=== PATIENT | male | born 1940 | race Caucasian/White ===

== ENCOUNTER 2018-09-13 15:38 | Inpatient (IN) | payer MEDICARE, OTHER ==
[~2018-09-13] VITALS: Ht 180.3 cm; Wt 125.6 kg
[~2018-09-13 15:38] MED LIST: HUMULIN 70100 UNIT/1 SQ; HUMULIN N100 UNITS/ SC; HUMULIN R100 UNIT/2 SC; LISINOPRIL30 MG PO; PRAVASTATIN SOD80 MG PO; SPIRONOLACTONE50 MG PO; WARFARIN SODIUM10 MG PO
--- OUTSIDE RECORDS SUMMARY | 2018-09-13 16:30 | XMS REPORT ---
Author [facility] Address Unknown Phone Unavailable Care Team Providers Care Drug And Alcohol Counsellor Name Role Phone BERNICE WYNNE Unavailable Unavailable Problems This patient has no known problems. Allergies, Adverse Reactions, Alerts This patient has no known allergies or adverse reactions. Medications This patient has no known medications. Results Test Description Test Time Test Comments Text Results Atomic Results Result Comments PELVIS AP 1-2 VIEWS [place] [id number] Patient Name: RENNY MARTINEZ MR #: [id number] : 1940 Age/Sex: 76/M Req #: [id number] [facility] Physician: Ordered by: BERNICE WYNNE MD Report #: [id number] Location: OR Room/Bed: Procedure: [id number] DX/PELVIS AP 1-2 VIEWS Exam Date: 03/23/17 Exam Time: 1110 REPORT STATUS: Signed PROCEDURE: X-RAY PELVIS, AP VIEW COMPARISON: None. INDICATIONS: STATUS POST LEFT HIP SURGERY FINDINGS: See conclusion CONCLUSION: Postsurgical changes related to total left hip replacement with intact acetabular cup and femoral stem components. No periprosthetic displaced fracture. Skin bhupinder and subcutaneous gas compatible with recent surgery. Dictated by: Bernice Blackmon M.D. on 03/23/2017 at 12:09 Electronically approved by: Bernice Blackmon M.D. on 03/23/2017 at 12:09 Dictated By: BERNICE BLACKMON MD 08 Transcribed By: MARYLOU on 03/23/171208 COPY TO: BERNICE WYNNE MD CHEST 2 VIEWS [place] [id number] Patient Name: RENNY MARTINEZ MR #: [id number] : 1940 Age/Sex: 76/M Req #: [id number] Adm Physician: Ordered by: BERNICE WYNNE MD Report #: [id number] Location: OR Room/Bed: Procedure: [id number] DX/CHEST 2 VIEWS Exam Date: 03/22/17 Exam Time: 1557 REPORT STATUS: Signed PROCEDURE: X-RAY CHEST, TWO VIEWS COMPARISON: 09/30/2011. INDICATIONS: PRE- OP FOR OA LT HIP FINDINGS: The lungs are well-inflated. No focal airspace consolidation, pleural effusion, or pneumothorax. Tortuosity of the thoracic aorta with otherwise normal heart size. No overt pulmonary edema. No acute osseous abnormality. Multilevel degenerative disc changes of the thoracic spine. Azygos fissure is again noted. CONCLUSION: No acute cardiopulmonary abnormality. Dictated by: Bernice Blackmon M.D. on 03/23/2017 at 7:15 Electronically approved by: Bernice Blackmon M.D. on 03/23/2017 at 7:15 Dictated By: BERNICE BLACKMON MD 4 Transcribed By: MARYLOU on 03/23/17714 COPY TO: BERNICE WYNNE MD
--- NOTE | 2018-09-13 16:40 | NUR ---
Direct admit from home. Received patient via wheelchair, accompanied by friend. AAOX4 to time, person, place, situation. Respirations even and unlabored. Oriented patient and friend to room. Instructed to use call light for assistance. Voiced understanding. Side rails upx2, call light within reach.
[2018-09-13 16:48] VITALS: BP 104/51
[2018-09-13] MEDS ORDERED: AZITHROMYCIN250 MG PO (16:58)
[2018-09-13 17:00] VITALS: BP 104/51
[2018-09-13] MEDS ORDERED: ACETAMINOPHEN/CODEINE 300MG - 30MG TAB PO PRN (17:00)
[2018-09-13] MEDS ORDERED: DEXTROSE 50% SYRINGE 50 ML IV PRN (17:00)
[2018-09-13 18:00] VITALS: BP 104/51
[2018-09-13] MEDS ORDERED: POTASSIUM CHLORIDE 20 MEQ TAB CR PO SCH ×2 (18:00→21:00)
[2018-09-13] MEDS ORDERED: FUROSEMIDE INJ 10 MG/ML 4 ML VIAL IV SCH (18:00)
[2018-09-13] MEDS ORDERED: SPIRONOLACTONE 25 MG TAB PO SCH (18:00)
--- NOTE | 2018-09-13 18:10 | Diagnostic Imaging Report ---
EXAM: CHEST 2 VIEWS, PA and lateral DATE: 09/13/2018 Time stamp on exam: 5:13 PM INDICATION: Shortness of breath COMPARISON: 03/22/2017 FINDINGS: LINES/TUBES: None LUNGS: Mild-moderate pulmonary vascular congestion. Azygos lobe noted. PLEURA: Small left pleural effusion. HEART AND MEDIASTINUM: The heart is enlarged. BONES AND SOFT TISSUES: Degenerative changes of the spine. IMPRESSION: Cardiomegaly, pulmonary vascular congestion and a small left pleural effusion consistent with CHF. Signed by: Dr. Trip Tomlinson DO on 09/13/2018 6:07 PM
[2018-09-13 18:52] LABS: BASOPHILS # (AUTO) 0.1 (0.0-0.1); BASOPHILS % 1.4 % (0.0-1.0); EOSINOPHILS # (AUTO) 0.1 (0.0-0.4); HEMATOCRIT 26.4 % (38.2-49.6); LYMPHOCYTES # (AUTO) 1.4 (1.0-3.2); LYMPHOCYTES % 32.6 % (18.0-39.1); MEAN CORPUSCULAR HEMOGLOBIN 29.6 pg (28-32); MEAN CORPUSCULAR HGB CONC 30.3 g/dL (31-35); MEAN CORPUSCULAR VOLUME 97.8 fL (81-99); MONOCYTES # (AUTO) 0.8 (0.2-0.8); MONOCYTES % 17.1 % (4.4-11.3); NEUTROPHILS % 45.7 % (38.7-80.0); RED CELL DISTRIBUTION WIDTH 14.8 % (11.7-14.4)
[2018-09-13 18:54] LABS: PLATELET COUNT 93 x10e3/uL (140-360)
--- NOTE | 2018-09-13 19:00 | NUR ---
Report given to oncoming nurse of patient's status. Resting in bed. No s/s of acute distress noted. Side rails upx2, call light within reach. Addendum: 09/13/18 at 3 by LUZ SCANLON RN Awaiting PT/INR results. Coumadin to be given by oncoming nurse
[2018-09-13 19:03] LABS: INR 1.66; PROTHROMBIN TIME 20.2 seconds (11.9-14.5)
[2018-09-13 19:10] LABS: ANION GAP 16.1 mmol/L (8-16); BLOOD UREA NITROGEN 21 mg/dL (7-26); BUN/CREATININE RATIO 19 (6-25); CALCIUM 8.5 mg/dL (8.4-10.2); CARBON DIOXIDE 29 mmol/L (22-29); CHLORIDE 99 mmol/L (98-107); CREATININE, SERUM 1.08 mg/dL (0.72-1.25); EST GLOMERULAR FILTRATION RATE > 60 ML/MIN (60-); GLUCOSE 71 mg/dL (74-118); POTASSIUM 3.1 mmol/L (3.5-5.1); SODIUM 141 mmol/L (136-145)
[2018-09-13 20:31] VITALS: BP 119/44
[2018-09-13] MEDS: INSULIN REGULAR, HUMAN 100 UNIT/1 ML 3ML VIAL SQ SCH (21:00)
[2018-09-13 21:15] VITALS: BP 119/44
[2018-09-13] MEDS: SPIRONOLACTONE 25 MG TAB PO SCH (21:15)
[2018-09-13] MEDS: NPH, HUMAN INSULIN ISOPHANE 100 UNIT/1 ML 3ML VIAL SQ SCH (21:15)
[2018-09-13] MEDS: WARFARIN SOD 3 MG TAB PO SCH (21:15)
[2018-09-13] MEDS: SIMVASTATIN 40 MG TAB PO SCH (21:15)
[2018-09-13] MEDS: FUROSEMIDE INJ 10 MG/ML 4 ML VIAL IV SCH (22:15)
[2018-09-14] VITALS (8 sets, daily range): BP systolic 93–109; BP diastolic 39–51
--- NOTE | 2018-09-14 04:00 | NUR ---
PATIENT RESTING COMFORTABLY UPON MAKING ROUNDS, NO DISTRESS NOTED. BED RAILS ARE UP, BED IN LOW POSITION, CALL LIGHT WITHIN EASY REACH, WILL CONTINUE TO MONITOR.
[2018-09-14] MEDS: FUROSEMIDE INJ 10 MG/ML 4 ML VIAL IV SCH (05:22)
[2018-09-14 05:36] LABS: BASOPHILS # (AUTO) 0.1 (0.0-0.1); BASOPHILS % 1.7 % (0.0-1.0); EOSINOPHILS # (AUTO) 0.2 (0.0-0.4); EOSINOPHILS % 4.8 % (0.0-6.0); HEMATOCRIT 24.7 % (38.2-49.6); HEMOGLOBIN 7.5 g/dL (14.0-18.0); LYMPHOCYTES # (AUTO) 1.4 (1.0-3.2); LYMPHOCYTES % 39.5 % (18.0-39.1); MEAN CORPUSCULAR HEMOGLOBIN 29.2 pg (28-32); MEAN CORPUSCULAR HGB CONC 30.4 g/dL (31-35); MEAN CORPUSCULAR VOLUME 96.1 fL (81-99); MONOCYTES # (AUTO) 0.5 (0.2-0.8); MONOCYTES % 13.2 % (4.4-11.3); NEUTROPHILS # (AUTO) 1.5 (2.1-6.9); NEUTROPHILS % 40.5 % (38.7-80.0); PLATELET COUNT 88 x10e3/uL (140-360); RED BLOOD COUNT 2.57 x10e6/uL (4.3-5.7); RED CELL DISTRIBUTION WIDTH 14.6 % (11.7-14.4)
[2018-09-14 05:47] LABS: INR 1.81; PROTHROMBIN TIME 21.6 seconds (11.9-14.5)
[2018-09-14 05:52] LABS: ANION GAP 11.5 mmol/L (8-16); CALCIUM 8.3 mg/dL (8.4-10.2); CREATININE, SERUM 1.29 mg/dL (0.72-1.25); POTASSIUM 3.5 mmol/L (3.5-5.1)
--- NOTE | 2018-09-14 07:00 | NUR ---
RCD PT AT BED PT IS ALERT AND ORIENTED PT RESTING ON BED IV PATENT BED LOW AND LOCKED CALL LIGHT IN REACH
[2018-09-14] MEDS: INSULIN REGULAR, HUMAN 100 UNIT/1 ML 3ML VIAL SQ SCH ×4 (07:30→21:00)
[2018-09-14] MEDS ORDERED: FUROSEMIDE INJ 10 MG/ML 2 ML VIAL IV SCH (08:45)
[2018-09-14] MEDS ORDERED: METOPROLOL TARTRATE INJ 1 MG/ML VIAL IV PRN (08:45)
[2018-09-14] MEDS ORDERED: SODIUM CHLORIDE 0.9% 250ML 250 ML IV ONE (08:45)
[2018-09-14] MEDS ORDERED: ONDANSETRON HCL INJ 2MG/ML 2ML 2 MG/ML VIAL IV PRN (08:45)
[2018-09-14] MEDS ORDERED: ACETAMINOPHEN 325 MG TAB PO PRN (08:45)
[2018-09-14] MEDS: OYST-CAL-D 500MG TABLET PO SCH ×2 (09:00→16:58)
[2018-09-14] MEDS: SPIRONOLACTONE 25 MG TAB PO SCH (09:00)
[2018-09-14] MEDS ORDERED: PANTOPRAZOLE SO40 MG PO (09:17)
[2018-09-14] MEDS ORDERED: FERROUS SULFAT325 MG PO (09:17)
[2018-09-14] MEDS ORDERED: FUROSEMIDE40 MG PO (09:17)
--- NOTE | 2018-09-14 10:40 | NUR ---
BLOOD TRANSFUSION STARTED AFTER VERIFIED WITH ANOTHER RN AND VITALS SPEND 15 MTS WITH PT ,PT RESTING ON BED FAMILY AT BED SIDE
--- NOTE | 2018-09-14 12:09 | NUR ---
ECHO REPORT FROM DR TBOIN OFFICE ITS ON CHART
--- NOTE | 2018-09-14 13:23 | NUR ---
SCDS ON BOTH LEGS
--- NOTE | 2018-09-14 13:50 | NUR ---
BLOOD TRANSFUSION COMPLETED VITALS CHECKED IV LASIX GIVE PT RESTING ON BED BED LOW AND LOCKED CALL LIGHT IN REACH
--- NOTE | 2018-09-14 15:59 | NUR ---
Nutrition Screen Note RD Recommendation for Physician: -Continue cardiac/ ADA diet as ordered -Pt refused diet education; handouts were left on bedside. Plan of Care: RD following, monitoring for tolerance and adequacy, diet education Nutrition reason for involvement: Diagnosis Primary Diagnose(s): decompensated heart failure PMH: DM, HTN, HLD Ht: 71in Wt: 277lb BMI: 38.6kg/m2 IBW: 172lb RD Assessment: (09/14) Chart reviewed. Labs and meds reviewed. 77yo M, who was admitted for heart failure. Currently on lasix. Visited pt in the room. Pt reported good appetite without any GI distress. No complains of chewing or swallowing difficulty. Pt reported recent weight gain due to fluids retention. Pt reported hx of CHF for many years and received diet education in the past. Pt was not interested in any more diet education. Handouts were left on bedside. Will continue to monitor and follow. Current Diet: cardiac/ ADA Malnutrition Evaluation (09/14) The patient does not meet criteria for a specified degree of malnutrition at this time. Will re-evaluate at follow-up as appropriate. Diet Education Needs Assessment: Diet education indicated, pt was not interested. Nutrition Care Level: low Signed: Dianna Berrios, MS, RD, LD
[2018-09-14] MEDS: WARFARIN SOD 3 MG TAB PO SCH (16:58)
--- NOTE | 2018-09-14 18:00 | Consultation ---
DATE OF CONSULTATION: Cardiology Consultation CHIEF COMPLAINT: Shortness of breath and fatigue. HISTORY OF PRESENT ILLNESS: The patient came to the office yesterday with extreme dyspnea and fatigue and edema bilaterally. The decision was made to admit the patient. On admission, the patient was noted to have a hemoglobin of 8, which subsequently dropped to 7.5. The patient does not report any bleeding and there was no melena. PAST MEDICAL HISTORY: Significant for: 1. Chronic atrial fibrillation. 2. Hypertension. 3. Previous hip replacement. 4. Previous appendectomy. MEDICATIONS: At home include: 1. Spironolactone. 2. Pravastatin. 3. Coumadin. 4. Humulin. 5. Lisinopril. 6. Furosemide. 7. Iron tablets. 8. Azithromycin. SOCIAL HISTORY: The patient does not drink and does not smoke. FAMILY HISTORY: There is a known family history of coronary artery disease. PHYSICAL EXAMINATION: GENERAL: The patient is a well-developed, well-nourished male, in no distress. VITAL SIGNS: Include a temperature of 98.8, blood pressure was 108/50, pulse was 78. HEAD, EARS, EYES, NOSE, AND THROAT: The patient's cranium was normocephalic and atraumatic. Extraocular muscles were intact. Sclerae were anicteric. Pupils were equal, round, reactive to light. There is no pallor or cyanosis of the oral mucosa. NECK: Supple. No jugular venous distention. No carotid bruits. CHEST: Demonstrated rhonchi bilaterally. CARDIAC: Demonstrated an irregularly irregular rhythm with a 2/6 systolic murmur. ABDOMEN: Demonstrated good bowel sounds. No tenderness. No masses. EXTREMITIES: There is no clubbing, no cyanosis. There was 3 to 4+ edema bilaterally. NEUROLOGIC: The patient was alert and oriented x3. Cranial nerves II through XII are intact. Motor strength was +5/+5 in all limbs. IMAGING DATA: The patient's EKG demonstrated atrial fibrillation with some nonspecific ST-T wave changes. IMPRESSION: The patient is a 77-year-old with chronic atrial fibrillation, admitted with severe fatigue and dyspnea. RECOMMENDATIONS: As follows: 1. The patient will need to be transfused for his low hemoglobin. 2. I feel that the patient's fatigue and dyspnea are most likely related to the anemia. 3. The patient will require a gastrointestinal consult for colonoscopy and endoscopy to evaluate the source of blood loss. 4. An echocardiogram was done in the office, demonstrating normal left ventricular size and function with an ejection fraction of 60%. MD SID Lyman/MODL /[id number]
--- NOTE | 2018-09-14 18:40 | NUR ---
PT RESTING ON BED BED SIDE REPORT GIVEN TO ONCOMING NURSE
--- NOTE | 2018-09-14 19:40 | NUR ---
Spoke with Dr. Amanda grant for Dr. Herzog. Requesting order for hematology consult and to call Attending for preference. Spoke with ASSEMBLER BILLIARD TABLE Dilcia and shabnam for Dr. Sainz.
[2018-09-14 20:11] LABS: FERRITIN 27.35 ng/mL (21.81-274.66)
--- NOTE | 2018-09-14 20:14 | NUR ---
Consult called for Dr. Sainz.
[2018-09-14] MEDS: NPH, HUMAN INSULIN ISOPHANE 100 UNIT/1 ML 3ML VIAL SQ SCH (21:00)
[2018-09-14] MEDS: SIMVASTATIN 40 MG TAB PO SCH (21:09)
[2018-09-15] VITALS (8 sets, daily range): BP systolic 106–126; BP diastolic 56–60
--- NOTE | 2018-09-15 01:45 | Consultation ---
DATE OF CONSULTATION: GI Consult Note. REASON FOR CONSULT: Symptomatic microcytic anemia. HISTORY OF PRESENTING ILLNESS: A 77-year-old, very pleasant white male with past medical history of hypertension, congestive heart failure, chronic atrial fibrillation (on warfarin), who got admitted with a progressive shortness of breath and swelling in legs. He is currently being seen by Pulmonary Service. GI is being consulted because his blood work revealed hemoglobin of 7.5, MCV 96.1. He has received 1 unit of packed red blood cell transfusion today. On further questioning, the patient stated that he never noted dark-colored stool. No episode of any hematemesis, melena, or any hematochezia. No chronic use of any NSAIDs. No abdominal pain. No history of peptic ulcer disease. He recently has had his stool occult blood tested positive on an outpatient basis as ordered by his primary care provider. He has had several colonoscopies done by Dr. Jeffrey in the remote past. The last colonoscopy was probably done more than five years ago. The patient is not sure if he has had any polyp removed. The patient is not sure if he ever had any upper endoscopy. REVIEW OF SYSTEMS: Twelve point system reviewed. Symptomatology is limited as per HPI. PAST MEDICAL HISTORY: Chronic atrial fibrillation, hypertension, and congestive heart failure. PAST SURGICAL HISTORY: Hip replacement and appendectomy. FAMILY HISTORY: Noncontributory. Negative for any GI or Global Marketing Manager malignancies. SOCIAL HISTORY: No smoking, alcohol, or any illicit drug use. ALLERGIES: NO KNOWN DRUG ALLERGIES. HOME MEDICATIONS: Ferrous sulfate, furosemide, insulin, lisinopril, pantoprazole, pravastatin, spironolactone, warfarin, and also a course of Z-Kali. PHYSICAL EXAMINATION: VITAL SIGNS: Temperature 97, pulse 65, respirations 20, blood pressure 109/50, and oxygen saturation 95% on room air. GENERAL: Not in any acute distress. HEENT: Oral mucosa is moist. Anicteric sclerae. CVS: S1, S2. Irregularly regular. LUNGS: Bilaterally grossly clear with decreased breath sounds at bases. ABDOMEN: Soft, protuberant belly, nondistended, and nontender. No palpable mass or hernia. Positive bowel sounds. EXTREMITIES: Warm. 1+ bilateral pitting leg edema. LABORATORY DATA: WBCs 3.57, hemoglobin 7.5, hematocrit 24.7, MCV 96, and platelet count 88. Sodium 139, potassium 3.5, chloride 101, bicarb 30, BUN 22, creatinine 1.29, PT 21.6, and INR 1.81. IMPRESSION: The patient has rather pancytopenia, not only anemia. PLAN: Check iron profile, repeat his stool guaiac, consult Hematology. Further recommendation based upon iron profile. I have given the patient my business card. If upper endoscopy or colonoscopy is indicated, this can be done electively as an outpatient. Nathan Patel MD SA/BRYANT /[id number]
[2018-09-15 05:31] LABS: BASOPHILS # (AUTO) 0.1 (0.0-0.1); BASOPHILS % 1.5 % (0.0-1.0); EOSINOPHILS # (AUTO) 0.2 (0.0-0.4); HEMATOCRIT 27.6 % (38.2-49.6); HEMOGLOBIN 8.2 g/dL (14.0-18.0); LYMPHOCYTES # (AUTO) 1.2 (1.0-3.2); LYMPHOCYTES % 34.3 % (18.0-39.1); MEAN CORPUSCULAR HEMOGLOBIN 28.8 pg (28-32); MEAN CORPUSCULAR HGB CONC 29.7 g/dL (31-35); MEAN CORPUSCULAR VOLUME 96.8 fL (81-99); MONOCYTES # (AUTO) 0.5 (0.2-0.8); MONOCYTES % 15.2 % (4.4-11.3); NEUTROPHILS # (AUTO) 1.4 (2.1-6.9); NEUTROPHILS % 42.7 % (38.7-80.0); PLATELET COUNT 91 x10e3/uL (140-360); RED BLOOD COUNT 2.85 x10e6/uL (4.3-5.7); RED CELL DISTRIBUTION WIDTH 15.1 % (11.7-14.4)
[2018-09-15 05:50] LABS: ANION GAP 11.6 mmol/L (8-16); CALCIUM 8.8 mg/dL (8.4-10.2); CREATININE, SERUM 1.17 mg/dL (0.72-1.25); MAGNESIUM 1.6 MG/DL (1.3-2.1); POTASSIUM 3.6 mmol/L (3.5-5.1)
[2018-09-15 06:03] LABS: B-TYPE NATRIURETIC PEPTIDE2 431.3 pg/mL (0-100)
[2018-09-15 06:12] LABS: FREE T4 (FREE THYROXINE) 1.07 ng/dL (0.9-1.8); THYROID STIMULATING HORMONE 1.691 uIU/mL (0.350-4.940)
[2018-09-15 06:43] LABS: FERRITIN 24.33 ng/mL (21.81-274.66)
[2018-09-15 06:54] LABS: FOLATE 10.4 ng/mL (7.0-15.4)
--- NOTE | 2018-09-15 07:00 | NUR ---
RCD PT AT BED PT IS ALERT AND ORIENTED PT RESTING ON BED IV PATENT BED LOW AND LOCKED CALL LIGHT IN REACH
[2018-09-15] MEDS: INSULIN REGULAR, HUMAN 100 UNIT/1 ML 3ML VIAL SQ SCH (07:30)
[2018-09-15] MEDS ORDERED: FUROSEMIDE INJ 10 MG/ML 4 ML VIAL IV NR (08:45)
[2018-09-15 08:59] LABS: INR 2.02; PROTHROMBIN TIME 23.5 seconds (11.9-14.5)
[2018-09-15] MEDS: OYST-CAL-D 500MG TABLET PO SCH ×2 (09:00→16:49)
[2018-09-15] MEDS: DOCUSATE SODIUM 100 MG CAP PO SCH ×2 (09:00→16:48)
[2018-09-15] MEDS: ASCORBIC ACID 500 MG TAB PO SCH ×2 (09:00→16:49)
[2018-09-15] MEDS: SPIRONOLACTONE 25 MG TAB PO SCH (09:00)
[2018-09-15] MEDS ORDERED: FUROSEMIDE INJ 10 MG/ML 4 ML VIAL IV SCH (09:00)
[2018-09-15] MEDS: INSULIN LISPRO 100 UNIT/1 ML 3ML VIAL SQ SCH ×5 (11:30→21:00)
--- NOTE | 2018-09-15 11:40 | NUR ---
[employer] NOTIFIED THAT PT HAVING VTACH NOTIFIED DR LATRICE QUEEN NO NEW ORDERS
[2018-09-15 11:43] LABS: BILIRUBIN,URINE NEGATIVE (NEGATIVE); CLARITY,URINE SL CLOUDY (CLEAR); COLOR,URINE YELLOW (YELLOW); KETONES,URINE NEGATIVE (NEGATIVE); LEUKOCYTE ESTERASE ,URINE NEGATIVE (NEGATIVE); NITRITE,URINE NEGATIVE (NEGATIVE); PROTEIN,URINE DIPSTICK TRACE (NEGATIVE); URINE UROBILINOGEN 4 mg/dL (0.2 - 1)
[2018-09-15 12:44] LABS: EPITHELIAL CELLS,URINE FEW /LPF
[2018-09-15] MEDS ORDERED: ONDANSETRON HCL 4 MG ORAL DISINTEGRATING TAB PO PRN (16:15)
[2018-09-15] MEDS: WARFARIN SOD 3 MG TAB PO SCH (16:48)
[2018-09-15] MEDS: FERROUS SULFATE 325 MG TAB PO SCH (16:49)
--- NOTE | 2018-09-15 19:01 | NUR ---
PT RESTING ON BED BED SIDE REPORT GIVEN TO ONCOMING NURSE
[2018-09-15] MEDS: SIMVASTATIN 40 MG TAB PO SCH (20:06)
[2018-09-16] VITALS (8 sets, daily range): BP systolic 105–146; BP diastolic 50–67
--- NOTE | 2018-09-16 01:26 | Progress Note ---
DATE: 09/15/2018 SUBJECTIVE: The patient reporting no abdominal pain. His stool remain soft brown. REVIEW OF SYSTEMS: GENERAL: No fever or chills. RESPIRATORY: No cough or expectoration. CVS: No chest pain or palpitation. MEDICATIONS: Reviewed as per MAR. PHYSICAL EXAMINATION: VITAL SIGNS: Stable. GENERAL: Not in any acute distress. HEENT: Oral mucosa is moist. ABDOMEN: Soft, nondistended, nontender. No palpable mass or hernia. Positive bowel sounds. LABS: Reviewed. PLAN: Appreciate Hematology consult for pancytopenia. His stool guaiac result is pending. If indicated, then the patient can get upper endoscopy and colonoscopy electively as an outpatient. The patient has my business card. He will follow up with me in 1 to 2 weeks after discharge. Nathan Patel MD SA/BRYANT /[id number]
[2018-09-16 05:54] LABS: BASOPHILS # (AUTO) 0.1 (0.0-0.1); BASOPHILS % 1.3 % (0.0-1.0); EOSINOPHILS # (AUTO) 0.2 (0.0-0.4); EOSINOPHILS % 4.3 % (0.0-6.0); HEMATOCRIT 26.2 % (38.2-49.6); HEMOGLOBIN 8.1 g/dL (14.0-18.0); LYMPHOCYTES # (AUTO) 1.2 (1.0-3.2); MEAN CORPUSCULAR HEMOGLOBIN 29.3 pg (28-32); MEAN CORPUSCULAR HGB CONC 30.9 g/dL (31-35); MEAN CORPUSCULAR VOLUME 94.9 fL (81-99); MONOCYTES # (AUTO) 0.6 (0.2-0.8); MONOCYTES % 16.1 % (4.4-11.3); NEUTROPHILS # (AUTO) 1.7 (2.1-6.9); PLATELET COUNT 101 x10e3/uL (140-360); RED BLOOD COUNT 2.76 x10e6/uL (4.3-5.7); RED CELL DISTRIBUTION WIDTH 14.9 % (11.7-14.4)
[2018-09-16 06:04] LABS: INR 2.36; PROTHROMBIN TIME 26.5 seconds (11.9-14.5)
[2018-09-16 06:09] LABS: ANION GAP 10.7 mmol/L (8-16); BLOOD UREA NITROGEN 22 mg/dL (7-26); BUN/CREATININE RATIO 22 (6-25); CALCIUM 8.9 mg/dL (8.4-10.2); CARBON DIOXIDE 31 mmol/L (22-29); CHLORIDE 103 mmol/L (98-107); CREATININE, SERUM 0.99 mg/dL (0.72-1.25); EST GLOMERULAR FILTRATION RATE > 60 ML/MIN (60-); GLUCOSE 141 mg/dL (74-118); MAGNESIUM 1.4 MG/DL (1.3-2.1); POTASSIUM 3.7 mmol/L (3.5-5.1); SODIUM 141 mmol/L (136-145)
[2018-09-16] MEDS: PANTOPRAZOLE SOD 40 MG TABEC PO SCH ×3 (06:30→07:25)
[2018-09-16] MEDS ORDERED: POTASSIUM CHLORIDE 20 MEQ TAB CR PO NR (07:30)
[2018-09-16] MEDS ORDERED: FUROSEMIDE INJ 10 MG/ML 4 ML VIAL IV NR (07:30)
--- NOTE | 2018-09-16 07:48 | Consultation ---
DATE OF CONSULTATION: 09/15/2018 REASON FOR CONSULTATION: Evaluation and management of patient with pancytopenia. HISTORY OF PRESENTING ILLNESS: Mr. Gardiner is a very pleasant 77-year-old gentleman with known history of atrial fibrillation, hypertension, and congestive heart failure, who was admitted due to progressive shortness of breath and worsening swelling in lower extremities. His initial workup revealed severe anemia with a hemoglobin of 7.5 and thrombocytopenia. Of note, the patient has been on anticoagulation with Coumadin due to atrial fibrillation with therapeutic INR. He was seen and evaluated by Gastroenterology Service and given 1 unit of PRBC transfusion. Hematology-Oncology has been consulted to assist with the management. Presently, the patient is lying comfortably, not in acute distress, breathing normally. He states that he has had extensive GI workup in the past. He denied any bleeding per rectum or history of any malignancy. PAST MEDICAL HISTORY: 1. Congestive heart failure. 2. Hypertension. 3. Chronic atrial fibrillation. 4. Chronic anticoagulation. PAST SURGICAL HISTORY: 1. Hip replacement. 2. Appendicectomy. 3. Multiple EGD and colonoscopies. FAMILY HISTORY: Negative for malignancies. SOCIAL HISTORY: He denies history of smoking, alcohol use, or illicit drug use. ALLERGIES: NO KNOWN DRUG ALLERGIES. CURRENT MEDICATIONS: Reviewed as per electronic medical record. REVIEW OF SYSTEMS: Fourteen-point review of systems negative except as mentioned in history of present illness. PHYSICAL EXAMINATION: VITAL SIGNS: Reviewed as per electronic medical record. HEENT: PERRLA. Extraocular movements are intact. Head is atraumatic and normocephalic. NECK: Supple. CVS: S1 and S2 audible. RESPIRATORY: Decreased bilateral air entry. ABDOMEN: Soft. Positive bowel sounds. EXTREMITIES: Positive edema. NEUROLOGIC: The patient is alert and awake. LABORATORY DATA: White blood cell count of 3.3, hemoglobin 8.2, hematocrit 27.6, and platelet 91,000. BUN 22 and creatinine 1.1. INR 2.02. ASSESSMENT AND PLAN: Mr. Gardiner is a very pleasant 77-year-old gentleman with known history of congestive heart failure, hypertension, and chronic atrial fibrillation, presently on anticoagulation with warfarin, admitted to the hospital due to progressive shortness of breath and worsening swelling of lower extremities. The patient has been seen and evaluated by GI as well as Pulmonary Service. Now, Hematology-Oncology has been consulted to assist with the management due to pancytopenia. 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 At this point, recommendation would be to get baseline workup and depending on the result we will provide further recommendation. I have also discussed briefly the need for bone marrow biopsy. The workup remained inconclusive. Meanwhile, continue supportive care. Thank you for the consult. I will continue to be available. Please call with questions. MD JAIR Guzmán/MODL /[id number]
[2018-09-16] MEDS: DOCUSATE SODIUM 100 MG CAP PO SCH ×2 (10:03→17:10)
[2018-09-16] MEDS: SPIRONOLACTONE 25 MG TAB PO SCH (10:03)
[2018-09-16] MEDS: FERROUS SULFATE 325 MG TAB PO SCH ×2 (10:03→17:11)
[2018-09-16] MEDS: ASCORBIC ACID 500 MG TAB PO SCH ×2 (10:04→17:11)
[2018-09-16] MEDS: OYST-CAL-D 500MG TABLET PO SCH ×2 (10:04→17:11)
[2018-09-16] MEDS: INSULIN LISPRO 100 UNIT/1 ML 3ML VIAL SQ SCH ×7 (10:12→21:30)
[2018-09-16 12:41] LABS: ANISOCYTOSIS SLIGHT; HYPOCHROMASIA MODERATE; PLATELET ESTIMATE SLIGHTLY DECREASED; PLATELET MORPHOLOGY COMMENT FEW LARGE; RBC MORPHOLOGY COMMENT NORMAL
--- NOTE | 2018-09-16 12:51 | NUR ---
CM SPOKE TO PATIENT AT BEDSIDE REGARDING IMM LETTER. IMM LETTER GIVEN WITH EXPLANATION BASED ON ANTICIPATED DISCHARGE DATE. ORIGINAL SIGNED AND PLACED IN CHART; COPY OF ORIGINAL DOCUMENT GIVEN TO PATIENT AT BEDSIDE AND PLACED IN CARE TRANSITION FOLDER. CM CONTACT INFORMATION GIVEN TO PATIENT FOR ANY NEEDS OR CONCERNS. PATIENT WITH NO FURTHER QUESTIONS.
[2018-09-16] MEDS: WARFARIN SOD 3 MG TAB PO SCH (17:11)
--- NOTE | 2018-09-16 18:11 | Diagnostic Imaging Report ---
EXAM: Complete Abdominal Ultrasound INDICATION: Evaluate for cirrhosis. ^Evaluate for cirrhosis COMPARISON: None. TECHNIQUE: Transverse and longitudinal images of the upper abdomen were obtained. FINDINGS: Liver: Size: 14.4 cm in the right midclavicular line, normal Appearance: Normal echogenicity, nodular contour Mass: No focal masses Spleen: Size: 12.8 cm in length, normal Echogenicity: Normal Mass: No focal masses Gallbladder: Stones/Sludge: None Wall: 0.3 cm Appearance: No wall thickening, pericholecystic fluid or hydrops. Sonographic Anglin's Sign: Negative Bile Ducts: Intrahepatic Ducts: No dilatation Extrahepatic Ducts: Common bile duct measures 0.5 cm, no dilatation Pancreas: Not well seen Kidneys: Length: Right 11.0 cm Left 10.5 cm Echogenicity: Normal Collecting System: No hydronephrosis Stone: None Cyst/Mass: None Vessels: Aorta: Not well seen Inferior Vena Cava: Not well seen Main Portal Vein: 1.2 cm, normal size with hepatopetal flow. Free Fluid: No ascites or pleural effusion IMPRESSION: Nodular contour in the liver could be due to cirrhosis. Pancreas, abdominal aorta and inferior vena cava not well seen. Signed by: Dr. Idris Whitman M.D. on 09/16/2018 6:08 PM
[2018-09-16] MEDS: FUROSEMIDE INJ 10 MG/ML 4 ML VIAL IV SCH (21:30)
[2018-09-16] MEDS: SIMVASTATIN 40 MG TAB PO SCH (21:30)
[2018-09-17 00:40] VITALS: BP_SYST 115
--- NOTE | 2018-09-17 01:17 | Progress Note ---
DATE: 09/16/2018 SUBJECTIVE: The patient reports no abdominal pain. Tolerating oral diets very well. Regular bowel movement, soft brown stool. REVIEW OF SYSTEMS: GENERAL: No fever or chills. CVS: No chest pain or palpitation. RESPIRATORY: Shortness of breath on exertion. MEDICATIONS: Reviewed as per MAR. PHYSICAL EXAMINATION: VITAL SIGNS: Temperature 96.6, pulse 61, respirations 19, blood pressure 121/66, and oxygen saturation 93% on room air. GENERAL: Obese body habitus, not in any acute distress. HEENT: Oral mucosa is moist. Anicteric sclerae. ABDOMEN: Soft, protuberant belly, obese abdomen, nondistended, nontender. No palpable mass or hernia. Positive bowel sounds. LABORATORY DATA: WBC 3.73, hemoglobin 8.1, down from 8.2, hematocrit 26.2, MCV 94.9, and platelet count 101. Sodium 141, potassium 3.1, chloride 103, bicarb 31, BUN 22, creatinine 0.99, and glucose is 141. PT 26.5, INR 2.36. Stool occult blood is positive on two occasions. IMPRESSION: 1. Pancytopenia. 2. Anemia with heme-positive stool. PLAN: Given his congestive heart failure with leg edema. I will hold off doing any endoscopy. The patient can electively get evaluation of heme-positive stool with bidirectional endoscopy as an outpatient. His stool often turns out positive for occult blood on patients taking anticoagulants. I do not suspect anemia from GI bleeding. The patient's anemia falls into the spectrum of pancytopenia. Hematology service is following the patient. Recommend to continue warfarin. The patient has my business card. He will follow in my office within 1 to 2 weeks post discharge. Nathan Patel MD SA/BRYANT /[id number]
[2018-09-17 05:13] VITALS: BP 121/58
[2018-09-17 05:53] LABS: BASOPHILS # (AUTO) 0.1 (0.0-0.1); BASOPHILS % 1.4 % (0.0-1.0); EOSINOPHILS # (AUTO) 0.2 (0.0-0.4); EOSINOPHILS % 3.8 % (0.0-6.0); HEMATOCRIT 26.1 % (38.2-49.6); LYMPHOCYTES # (AUTO) 1.5 (1.0-3.2); LYMPHOCYTES % 34.1 % (18.0-39.1); MEAN CORPUSCULAR HEMOGLOBIN 29.5 pg (28-32); MEAN CORPUSCULAR HGB CONC 30.7 g/dL (31-35); MEAN CORPUSCULAR VOLUME 96.3 fL (81-99); MONOCYTES # (AUTO) 0.6 (0.2-0.8); MONOCYTES % 14.4 % (4.4-11.3); NEUTROPHILS % 45.8 % (38.7-80.0); PLATELET COUNT 105 x10e3/uL (140-360); RED BLOOD COUNT 2.71 x10e6/uL (4.3-5.7); RED CELL DISTRIBUTION WIDTH 14.7 % (11.7-14.4)
[2018-09-17 07:20] LABS: ANION GAP 12.3 mmol/L (8-16); BLOOD UREA NITROGEN 23 mg/dL (7-26); BUN/CREATININE RATIO 22 (6-25); CALCIUM 9.6 mg/dL (8.4-10.2); CARBON DIOXIDE 33 mmol/L (22-29); CHLORIDE 100 mmol/L (98-107); CREATININE, SERUM 1.06 mg/dL (0.72-1.25); EST GLOMERULAR FILTRATION RATE > 60 ML/MIN (60-); GLUCOSE 157 mg/dL (74-118); MAGNESIUM 1.2 MG/DL (1.3-2.1); POTASSIUM 4.3 mmol/L (3.5-5.1); SODIUM 141 mmol/L (136-145)
[2018-09-17 08:07] VITALS: BP 120/57
[2018-09-17 08:30] VITALS: BP 120/57
[2018-09-17] MEDS: FERROUS SULFATE 325 MG TAB PO SCH (08:30)
[2018-09-17] MEDS: DOCUSATE SODIUM 100 MG CAP PO SCH (08:30)
[2018-09-17] MEDS: SPIRONOLACTONE 25 MG TAB PO SCH (08:30)
[2018-09-17] MEDS: PANTOPRAZOLE SOD 40 MG TABEC PO SCH (08:30)
[2018-09-17] MEDS: FUROSEMIDE INJ 10 MG/ML 4 ML VIAL IV SCH (08:31)
[2018-09-17] MEDS: ASCORBIC ACID 500 MG TAB PO SCH (08:31)
[2018-09-17] MEDS: OYST-CAL-D 500MG TABLET PO SCH (08:31)
[2018-09-17] MEDS: INSULIN LISPRO 100 UNIT/1 ML 3ML VIAL SQ SCH ×2 (08:37)
[2018-09-17] MEDS ORDERED: POTASSIUM CHLORIDE 20 MEQ TAB CR PO SCH (09:00)
[2018-09-17 09:30] LABS: INR 2.43; PROTHROMBIN TIME 27.1 seconds (11.9-14.5)
[2018-09-17] MEDS ORDERED: PANTOPRAZOLE SO40 MG PO (09:31)
[2018-09-17] MEDS ORDERED: COLACE100 MG PO (09:34)
[2018-09-17] MEDS ORDERED: Calcium Carbonate PO (09:34)
[2018-09-17] MEDS ORDERED: FERROUS SULFAT325 MG PO (09:34)
[2018-09-17] MEDS ORDERED: ASCORBIC ACID500 MG PO (09:34)
[2018-09-17] MEDS ORDERED: FUROSEMIDE INJ 10 MG/ML 4 ML VIAL IV ONE (09:45)
--- NOTE | 2018-09-17 19:06 | Progress Note ---
DATE: 09/17/2018 CHIEF COMPLAINT: The patient with pancytopenia and CHF exacerbation. HISTORY OF PRESENTING ILLNESS: Mr. Gardiner is a 77-year-old gentleman with known history of congestive heart failure, hypertension, and chronic atrial fibrillation, presented to the ER on anticoagulation with warfarin, admitted due to progressive shortness of breath and worsening swelling of lower extremities. He has been treated with IV diuretics with improved symptoms. He was noted to have pancytopenia. Subsequently, Hematology-Oncology has been consulted. OBJECTIVE: VITAL SIGNS: Reviewed and as per electronic medical record. LABORATORY DATA: White blood cell count 4.43, hemoglobin 8.0, hematocrit 26.1, and platelets 105. BUN 22 and creatinine 1.0. ASSESSMENT AND PLAN: Mr. Gardiner is a 77-year-old gentleman with known history of hypertension, atrial fibrillation, and congestive heart failure, admitted due to shortness of breath. He underwent workup which remained inconclusive. Cause of pancytopenia remain uncertain. I have advised him to follow up with me in an outpatient setting. MD JAIR Guzmán/MODL /[id number]
--- NOTE | 2018-09-17 20:11 | Discharge Summary ---
ADMISSION DIAGNOSES: 1. Acute on chronic systolic congestive heart failure. 2. Atrial fibrillation. 3. Hypertension complicated by chronic congestive heart failure. 4. Type 2 diabetes. 5. Hyperlipidemia. 6. Anemia. 7. Thrombocytopenia. 8. Hypocalcemia. DISCHARGE DIAGNOSES: 1. Acute on chronic systolic congestive heart failure. 2. Atrial fibrillation. 3. Hypertension complicated by chronic congestive heart failure. 4. Type 2 diabetes. 5. Hyperlipidemia. 6. Anemia. 7. Thrombocytopenia. 8. Hypocalcemia. 9. Rule out systolic congestive heart failure/pancytopenia. HISTORY: The patient has a history of type 2 diabetes, hypertension, hyperlipidemia, osteoarthritis, and atrial fibrillation. PAST SURGICAL HISTORY: Left total hip replacement, left eye retinal detachment repair, and appendectomy. FAMILY HISTORY: The patient's mom and dad both have cancer. SOCIAL HISTORY: Noncontributory. HOSPITAL COURSE: A 77-year-old male complains of intermittent bilateral lower extremity edema, shortness of breath, and dyspnea on exertion that began to worsen about a month ago. He admits to only taking Lasix when he noticed the swelling and does not follow a fluid restriction at home. Nothing improves or worsens his symptoms. On admission, the patient was started on IV Lasix b.i.d. and an echo was ordered. A BNP on admission was 659, Cardiology was consulted. He was resumed on his Coumadin. Chest x-ray showed cardiomegaly, pulmonary vascular congestion, and small left pleural effusion consistent with CHF. Ultrasound of the abdomen showed no ascites or pleural effusions, nodular contour in the liver could be due to cirrhosis. Stool for blood came back positive, so GI was consulted. The patient received a unit of blood on 09/14/2018, for his anemia. The inpatient echo was discontinued as he had recently had an echo done in the bottle washer's office. The echo showed an EF of 60%, so CHF was ruled out. Even though the stool for blood was positive, GI said that the patient could do workup as an outpatient. Hematology/Oncology was consulted for the pancytopenia, who also said the patient can follow up outpatient for workup. At the time of discharge, the patient is feeling much better. He was instructed to take his Lasix as prescribed, which was Lasix 80 mg p.o. b.i.d. Continue his Aldactone. He was given a prescription for iron, ascorbic acid, calcium carbonate, and Colace as well as renew his prescription for Protonix. The patient agrees to take medications as prescribed and follow the fluid restriction. The patient will follow up with GI, Oncology, Cardiology, and primary care in 1-2 weeks. The patient understands discharge instructions and agrees to plan. Dictated by Jennifer Hazel NP Robin Neville MD LETICIA/MODL /[id number]
== END 2018-09-17 10:45 | disposition home or self-care (01) | DRG 292 ==
LOC: MED/SURG2 16:25
PROVIDERS: ADMIT Internal Medicine; ATTEND Internal Medicine
PROC: 30233N1 Transfusion of Nonautologous Red Blood Cells into Peripheral Vein, Percutaneous Approach (ICD-10-PCS; principal; 2018-09-14)
DX: I11.0 Hypertensive heart disease with heart failure (principal); D61.818 Other pancytopenia; K92.1 Melena; I50.23 Acute on chronic systolic (congestive) heart failure; I48.2 Chronic atrial fibrillation; E78.5 Hyperlipidemia, unspecified; E11.9 Type 2 diabetes mellitus without complications; M19.90 Unspecified osteoarthritis, unspecified site; Z79.01 Long term (current) use of anticoagulants; Z79.4 Long term (current) use of insulin; Z96.642 Presence of left artificial hip joint
CPT/HCPCS: 36415; 71046; 76700; 80048; 81001; 82270; 82607; 82728; 82746; 82948; 83036; 83540; 83735; 83880; 84439; 84443; 84466; 85025; 85610; 86850; 86900; 86920; 96372; J1940; J7050; P9016

== ENCOUNTER 2018-09-21 20:58 | Inpatient (IN) | payer MEDICARE, OTHER ==
[~2018-09-21] VITALS: Ht 210.8 cm; Wt 141.1 kg
[~2018-09-21 20:58] MED LIST changes: +ASCORBIC ACID500 MG PO; +AZITHROMYCIN250 MG PO; +COLACE100 MG PO; +Calcium Carbonate PO; +FERROUS SULFAT325 MG PO; +FUROSEMIDE40 MG PO; +PANTOPRAZOLE SO40 MG PO
[2018-09-21] MEDS ORDERED: SODIUM CHLORIDE 0.9% 1000ML 1,000 ML IV ONE (21:22)
[2018-09-21] MEDS ORDERED: VECURONIUM BROMIDE FOR INJ 20 MG VIAL IV STA (21:35)
[2018-09-21] MEDS ORDERED: MIDAZOLAM HCL 5MG/ML 2ML VIAL IV ONE (21:35)
[2018-09-21] MEDS ORDERED: LIDOCAINE 1% 5ML-MPF INJ ONE (21:35)
[2018-09-21] MEDS ORDERED: MIDAZOLAM HCL 2 MG/2 ML VIAL ONE (21:40)
[2018-09-21] MEDS ORDERED: LIDOCAINE HCL 2% 100 MG/5 ML IV ONE (21:41)
[2018-09-21] MEDS ORDERED: SODIUM CHLORIDE 0.9% 1000ML 1,000 ML ONE (21:46)
[2018-09-21] MEDS ORDERED: MIDAZOLAM HCL 25 MG in SODIUM CHLORIDE 0.9% 45 ML IV PRN (22:00)
[2018-09-21] MEDS ORDERED: ALBUTEROL/IPRATROPIUM 3 ML NEB NEB ONE (22:30)
[2018-09-21 22:38] LABS: BASOPHILS # (AUTO) 0.1 (0.0-0.1); BASOPHILS % 0.8 % (0.0-1.0); EOSINOPHILS # (AUTO) 0.1 (0.0-0.4); EOSINOPHILS % 1.1 % (0.0-6.0); HEMATOCRIT 21.4 % (38.2-49.6); LYMPHOCYTES # (AUTO) 2.3 (1.0-3.2); LYMPHOCYTES % 34.1 % (18.0-39.1); MEAN CORPUSCULAR HEMOGLOBIN 29.4 pg (28-32); MEAN CORPUSCULAR HGB CONC 30.4 g/dL (31-35); MEAN CORPUSCULAR VOLUME 96.8 fL (81-99); MONOCYTES # (AUTO) 0.8 (0.2-0.8); MONOCYTES % 11.7 % (4.4-11.3); NEUTROPHILS # (AUTO) 3.4 (2.1-6.9); PLATELET COUNT 149 x10e3/uL (140-360); RED BLOOD COUNT 2.21 x10e6/uL (4.3-5.7); RED CELL DISTRIBUTION WIDTH 15.7 % (11.7-14.4)
--- NOTE | 2018-09-21 22:45 | Diagnostic Imaging Report ---
EXAMINATION: Head CT without contrast. HISTORY:Altered mental status. COMPARISON:None. TECHNIQUE: Multidetector axial images were obtained from the foramen magnum to the vertex without contrast. The images were reconstructed using brain and bone algorithms. Thin section brain images were reformatted into coronal and sagittal planes. Dose modulation, iterative reconstruction, and/or weight based adjustment of the mA/kV was utilized to reduce the radiation dose to as low as reasonably achievable. Intravenous contrast: None IMAGE QUALITY: Acceptable. FINDINGS: Skull/scalp: No lytic or blastic. lesions. No surgical changes. Parenchyma: Nonspecific few, scattered supratentorial white matter hypodensity are likely related to small vessel ischemic changes. No acute hemorrhage, mass or acute major vascular territorial infarct. Arteries: No density suggestive of thrombosis. Dural sinuses: No abnormal density suggestive of thrombosis. Ventricles: No hydrocephalus or displacement. Extra-axial spaces: No abnormal density. Brain volume: Generalized age-related cerebral volume loss. Craniocervical junction: No mass, Chiari malformation, or basilar invagination. Sella: No mass. Paranasal/mastoid sinuses: Imaged portions unremarkable. IMPRESSION: No acute intracranial abnormality. Generalized age-related cerebral volume loss and supratentorial white matter microvascular ischemic changes. Signed by: Dr. Marisol Berger M.D. on 09/21/2018 10:42 PM
[2018-09-21 22:46] LABS: HEMOGLOBIN 6.5 g/dL (14.0-18.0)
--- NOTE | 2018-09-21 22:48 | NUR ---
AND RN NOTIFIED OF CRITICAL LAB VALUE. HBG 6.5 HCT 21.5.
[2018-09-21 22:50] LABS: INR 4.13
[2018-09-21 22:51] LABS: BILIRUBIN,URINE NEGATIVE (NEGATIVE); CLARITY,URINE CLEAR (CLEAR); COLOR,URINE YELLOW (YELLOW); KETONES,URINE NEGATIVE (NEGATIVE); LEUKOCYTE ESTERASE ,URINE NEGATIVE (NEGATIVE); NITRITE,URINE NEGATIVE (NEGATIVE); PROTEIN,URINE DIPSTICK NEGATIVE (NEGATIVE); URINE UROBILINOGEN 1 mg/dL (0.2 - 1)
[2018-09-21 22:51] LABS: PARTIAL THROMBOPLASTIN TIME 40.4 seconds (23.8-35.5)
--- NOTE | 2018-09-21 22:53 | Diagnostic Imaging Report ---
EXAMINATION: CHEST SINGLE (PORTABLE) COMPARISON: Chest x-ray 09/13/2018 INDICATION: Hypotension, altered level of consciousness ^ERMD ORDER ^[id number] ^[id number] ^Y DISCUSSION: Frontal view of the chest obtained at 2200 hours. HEART AND MEDIASTINUM: Stable cardiomegaly and aortic tortuosity LINES: Endotracheal tube terminates proximally 4 cm above the palak LUNGS: Pulmonary arteries are enlarged. There is an azygos lobe. Retrocardiac airspace opacity has developed. No confluent infiltrates in the right lung. PLEURA: No large effusions. No pneumothorax BONES AND SOFT TISSUES: No focal osseous lesion. The soft tissues are normal. IMPRESSION: Cardiomegaly and pulmonary vascular prominence suggestive of pulmonary artery hypertension. Retrocardiac airspace disease suggestive atelectasis or infiltrate. Small effusion is suspected. Endotracheal tube as described above. Signed by: Dr. Stevie Rogers MD on 09/21/2018 10:50 PM
--- NOTE | 2018-09-21 22:55 | NUR ---
VTACH NOTED ON WORKFORCE DEVELOPMENT VICE PRESIDENT, DR. PURVIS INFORMED. PADS APPLIED. AMIODARONE ORDERS RECEIVED, SEE eMAR.
--- NOTE | 2018-09-21 22:56 | NUR ---
VTACH EPISODE LASTED APPROX 1 MIN.
[2018-09-21 22:57] LABS: PROTHROMBIN TIME 40.8 seconds (11.9-14.5)
[2018-09-21 22:58] LABS: ALANINE AMINOTRANSFERASE 14 IU/L (0-55); ALBUMIN 2.4 g/dL (3.5-5.0); ALBUMIN/GLOBULIN RATIO 0.9 (0.8-2.0); ALKALINE PHOSPHATASE 61 IU/L (40-150); BLOOD UREA NITROGEN 46 mg/dL (7-26); BUN/CREATININE RATIO 41 (6-25); CALCIUM 8.5 mg/dL (8.4-10.2); CARBON DIOXIDE 30 mmol/L (22-29); CHLORIDE 102 mmol/L (98-107); CREATINE KINASE 58 IU/L (30-200); CREATININE, SERUM 1.13 mg/dL (0.72-1.25); EST GLOMERULAR FILTRATION RATE > 60 ML/MIN (60-); GLUCOSE 162 mg/dL (74-118); SODIUM 142 mmol/L (136-145)
[2018-09-21] MEDS ORDERED: AMIODARONE HCL 360MG 200 ML IV SCH ×2 (23:00)
[2018-09-21] MEDS ORDERED: AMIODARONE 900MG 500 ML IV ONE (23:04)
[2018-09-21] MEDS ORDERED: AMIODARONE HCL 900 MG in DEXTROSE 5% 500ML 500 ML IV STA (23:05)
[2018-09-21 23:06] LABS: B-TYPE NATRIURETIC PEPTIDE2 371.9 pg/mL (0-100)
--- NOTE | 2018-09-21 23:11 | NUR ---
MD AND RN NOTIFIED OF CRITICAL LAB VALUES. PT 40.8 AND LACTIC ACID 32.7.
[2018-09-21] MEDS ORDERED: PHYTONADIONE 10 MG/ML AMP SC ONE (23:15)
[2018-09-21] MEDS ORDERED: PANTOPRAZOLE INJ 80 MG in SODIUM CHLORIDE 0.9% 100 ML IV SCH (23:15)
[2018-09-21] MEDS ORDERED: SODIUM CHLORIDE FLUSH 10 ML SYR INJ PRN (23:15)
[2018-09-21] MEDS ORDERED: AMIODARONE HCL 150MG 100 ML IV ONE (23:15)
[2018-09-21] MEDS ORDERED: SODIUM CHLORIDE 0.9% 250ML 250 ML IV ONE (23:15)
[2018-09-21] MEDS ORDERED: AMIODARONE HCL 900 MG in DEXTROSE 5% 500ML 500 ML IV ONE (23:15)
[2018-09-21 23:18] LABS: THYROID STIMULATING HORMONE 1.698 uIU/mL (0.350-4.940)
[2018-09-21 23:23] LABS: BACTERIA,URINE RARE /HPF; EPITHELIAL CELLS,URINE RARE /LPF
[2018-09-22] VITALS (25 sets, daily range): BP systolic 73–128; BP diastolic 29–95
[2018-09-22] MEDS ORDERED: LACTULOSE SYRUP 20 GM/30 ML UDC NG ONE
[2018-09-22] MEDS ORDERED: SODIUM CHLORIDE 0.9% 1000ML 1,000 ML IV ONE ×2 (00:15→06:30)
--- NOTE | 2018-09-22 00:15 | NUR ---
PT NOTED TO HAVE SEVERE HYPOTENSION, DR. PURVIS INFORMED, AT BEDSIDE AT THIS TIME FOR CENTRAL LINE PLACEMENT.
[2018-09-22] MEDS ORDERED: PHYTONADIONE 10 MG/ML AMP SQ ONE (00:30)
--- NOTE | 2018-09-22 00:42 | NUR ---
RADIOLOGY AT BEDSIDE FOR POST-PROCEDURE X-RAY AT THIS TIME.
--- NOTE | 2018-09-22 01:14 | Diagnostic Imaging Report ---
EXAMINATION: CHEST SINGLE (PORTABLE) COMPARISON: 09/21/2018 INDICATION: ^CENTRAL LINE PLACEMENT ^[id number] ^0050 ^Y DISCUSSION: Frontal view of the chest obtained at 0042 hours. HEART AND MEDIASTINUM: Stable cardiomegaly and vascular prominence LINES: Endotracheal tube terminates 3 to 4 cm above the palak. Right subclavian central venous catheter lies midline in the upper mediastinum. LUNGS: Stable retrocardiac airspace opacity. No new findings in the right lung. PLEURA: No pleural effusion or pneumothorax. BONES AND SOFT TISSUES: No focal osseous lesion. The soft tissues are normal. IMPRESSION: Right subclavian central venous catheter terminates at the midline. It may terminate at the proximal left brachiocephalic vein. No pneumothorax. Endotracheal tube as described above. No new cardiopulmonary process. Signed by: Dr. Stevie Rogers MD on 09/22/2018 1:11 AM
[2018-09-22 02:43] LABS: ABG HCO3 35 mmol/L (23-28); ABG PCO2 48 mmHg (41-51); ABG PH 7.47 (7.31-7.41); ABG PO2 374 mmHg (80-105)
[2018-09-22] MEDS ORDERED: VANCOMYCIN 1GM/NS 250 ML 250 ML IV ONE (02:45)
[2018-09-22] MEDS ORDERED: CEFEPIME 1GM/NS 0.9% 50 ML 50 ML IV SCH (02:45)
[2018-09-22] MEDS ORDERED: SODIUM CHLORIDE 0.9% 1000ML 1,000 ML ONE (03:48)
[2018-09-22] MEDS ORDERED: ATROPINE SULFATE 0.1 MG/ML 10ML SYR ONE (03:49)
[2018-09-22] MEDS ORDERED: AMIODARONE HCL 360MG 200 ML IV SCH (05:00)
[2018-09-22] MEDS ORDERED: PANTOPRAZOL 40MG/SOD CHL 0.9% 50 ML IV ONE (06:13)
[2018-09-22] MEDS ORDERED: VANCOMYCIN 1GM/NS 250 ML 250 ML ONE (06:26)
[2018-09-22 06:56] LABS: BASOPHILS # (AUTO) 0.1 (0.0-0.1); BASOPHILS % 0.7 % (0.0-1.0); EOSINOPHILS % 0.4 % (0.0-6.0); HEMATOCRIT 22.6 % (38.2-49.6); HEMOGLOBIN 7.3 g/dL (14.0-18.0); LYMPHOCYTES % 14.4 % (18.0-39.1); MEAN CORPUSCULAR HEMOGLOBIN 29.4 pg (28-32); MEAN CORPUSCULAR HGB CONC 32.3 g/dL (31-35); MEAN CORPUSCULAR VOLUME 91.1 fL (81-99); MONOCYTES # (AUTO) 0.8 (0.2-0.8); MONOCYTES % 11.3 % (4.4-11.3); NEUTROPHILS # (AUTO) 5.1 (2.1-6.9); NEUTROPHILS % 72.8 % (38.7-80.0); PLATELET COUNT 138 x10e3/uL (140-360); RED BLOOD COUNT 2.48 x10e6/uL (4.3-5.7); RED CELL DISTRIBUTION WIDTH 15.9 % (11.7-14.4)
[2018-09-22 07:36] LABS: ANION GAP 14.2 mmol/L (8-16); BLOOD UREA NITROGEN 51 mg/dL (7-26); BUN/CREATININE RATIO 44 (6-25); CARBON DIOXIDE 26 mmol/L (22-29); CHLORIDE 104 mmol/L (98-107); CREATININE, SERUM 1.15 mg/dL (0.72-1.25); EST GLOMERULAR FILTRATION RATE > 60 ML/MIN (60-); GLUCOSE 240 mg/dL (74-118); POTASSIUM 4.2 mmol/L (3.5-5.1); SODIUM 140 mmol/L (136-145)
[2018-09-22] MEDS ORDERED: VASOPRESSIN 100 UNIT in DEXTROSE 5% 100ML 100 ML IV PRN (08:00)
[2018-09-22 08:06] LABS: INR 3.04; PROTHROMBIN TIME 32.2 seconds (11.9-14.5)
[2018-09-22] MEDS ORDERED: LORAZEPAM INJ 2 MG/ML VIAL IV PRN (08:30)
--- NOTE | 2018-09-22 08:44 | Consultation ---
DATE OF CONSULTATION: 09/22/2018 Cardiology Consultation. CHIEF COMPLAINT: The patient is a 77-year-old with altered mental status and hypotension. HISTORY OF PRESENT ILLNESS: The patient is a 77-year-old, who was brought to the emergency room by the family due to confusion and altered mental status. The patient was noted to be hypotensive in the emergency room. The patient was noted to have a hemoglobin of 6.5, and the patient was subsequently intubated and admitted to the ICU. A CT scan of the head was done, which demonstrated no acute abnormalities. The patient was started on IV dopamine and was given fresh frozen plasma and packed red blood cells. The patient had been recently discharged from [facility] about a week ago after being admitted with pancytopenia and anemia requiring transfusions. PAST MEDICAL HISTORY: Significant for: 1. Chronic atrial fibrillation. 2. Coronary artery disease. 3. Chronic anemia. 4. Recent echocardiogram demonstrating an ejection fraction of 55% to 60%. 5. Diabetes mellitus. MEDICATIONS AT HOME: Include ascorbic acid, Colace, furosemide, insulin, lisinopril, pravastatin, spironolactone, and Coumadin. SOCIAL HISTORY: The patient does not drink, does not smoke. FAMILY HISTORY: There is no known family history of coronary artery disease. PHYSICAL EXAMINATION: GENERAL: The patient is intubated male. VITAL SIGNS: Included a blood pressure of 91/57, pulse of 120, temperature of 99.2. HEAD, EARS, EYES, NOSE, AND THROAT: The patient's cranium was normocephalic and atraumatic. Extraocular muscles were intact. Sclerae was anicteric. Pupils were equal, round, reactive to light. There was no pallor, or cyanosis of the oral mucosa. There is no erythema or edema of the throat. NECK: Supple. No jugular venous distention. No carotid bruits. CHEST: Demonstrated rhonchi bilaterally. CARDIAC: Demonstrated an irregularly irregular rhythm. There was normal S1 and S2 with a short 2/6 systolic murmur. ABDOMEN: Demonstrated good bowel sounds. No tenderness. No masses. EXTREMITIES: There was 3+ edema bilaterally. NEUROLOGIC: The patient was intubated and not following commands. RADIOLOGY: The patient's EKG demonstrated atrial fibrillation with a rapid ventricular response. IMPRESSION: The patient is a 77-year-old with altered mental status, hypotension and profound anemia. RECOMMENDATIONS: My recommendations are as follows: 1. The patient will need to be given fresh frozen plasma to reverse the elevated INR. 2. The patient will need to be transfused with packed red blood cells to get his hemoglobin above 8. 3. The patient will require dopamine and IV vasopressin for blood pressure. 4. The patient will require IV fluids. 5. The patient will be placed on IV amiodarone to control the rate of his atrial fibrillation. 6. The patient's Coumadin will need to be discontinued. 7. A CT scan of the abdomen will need to be obtained to exclude a retroperitoneal hematoma. Manjinder Jameson MD [facility]/MODL /[id number] cc: Robin Neville MD
[2018-09-22] MEDS: ASCORBIC ACID 500 MG TAB PO SCH ×2 (09:00→13:30)
[2018-09-22] MEDS ORDERED: BRILINTA90 MG (09:08)
--- NOTE | 2018-09-22 09:13 | Consultation ---
DATE OF CONSULTATION: 09/22/2018 Pulmonary Critical Care Consultation HISTORY OF PRESENT ILLNESS: The patient has a history of chronic atrial fibrillation and hypertension. He also had a previous hip replacement. He was hospitalized at [facility] on the 17 of September with some anemia as well as atrial fibrillation and systolic congestive heart failure. The patient received diuretics and adjustment in his cardiac regimen. His echocardiogram showed preserved EF of 60%. His hospitalization was complicated by anemia and pancytopenia. He was seen by Gastroenterology. Gastroenterology recommended further evaluation as an outpatient. The patient now reports worsening confusion at home. There were no fevers. There was no active bleeding. The patient did not have any chest pain. He had no difficulty breathing. He had no abdominal pain. He had no nausea or vomiting. PAST SURGICAL HISTORY: 1. Status post hip replacement. 2. Status post appendectomy. 3. Status post EGD and colonoscopy, which was negative. PAST MEDICAL HISTORY: 1. Atrial fibrillation. 2. Hypertension. 3. Congestive heart failure. SOCIAL HISTORY: The patient is not a smoker. He is not a drinker. ALLERGIES: THE PATIENT HAS NO KNOWN DRUG ALLERGIES. FAMILY HISTORY: Family history is noncontributory. REVIEW OF SYSTEMS: GENERAL: There are no fevers. The patient is not having any headache. NECK: He has no neck pain. He has no JVD. He does have a right subclavian line in place. There is a little bit of drainage. A small amount of bleeding. CARDIAC: Reveals a regular rate and rhythm with normal S1 and S2. There is some tachycardia. LUNGS: Auscultation of lungs reveals crackles at the bases. There is no wheezing. ABDOMEN: Soft, nontender. There is no rebound or guarding. EXTREMITIES: Show 2+ leg edema bilaterally. He has no neck pain. He has no chest pain. He did have some mild dyspnea. There is no abdominal pain. There is no nausea or vomiting. He has leg swelling. He has confusion, but no focal abnormalities. PHYSICAL EXAMINATION: VITAL SIGNS: The blood pressure is now 95/46 on dopamine. Pulse is 119 and temperature is 99.2. HEENT: Shows no facial swelling or erythema. The oropharynx is normal. There is an oral endotracheal tube. LYMPHATIC: Shows no submandibular, cervical, or supraclavicular adenopathy. There is a right subclavian line in place. There is small amount of bleeding around the site. CARDIAC: Reveals tachycardia with normal S1, S2. LUNGS: Auscultation of lungs reveal decreased breath sounds at the bases. There is no wheezing. ABDOMEN: Soft, nontender. There is no rebound or guarding. EXTREMITIES: Show 3+ leg edema. NEUROLOGIC: Shows the patient to be sedated. There are no focal abnormalities. LABORATORY DATA: White blood cell count is 7 and hemoglobin is 7.3. The platelet count is 138. The BUN to creatinine ratio is 51 to 1.15. Electrolytes are within normal limits. Blood gas is 7.47, 48, 374, and 35. Urinalysis is normal. Radiographic data shows no acute cardiopulmonary process. IMPRESSION: 1. Sepsis with unclear source, present on admission. 2. Acute on chronic respiratory failure. 3. Acute on chronic systolic congestive heart failure. 4. Chronic atrial fibrillation. 5. Anemia secondary to chronic blood loss. 6. Thrombocytopenia. 7. Hepatomegaly present on prior ultrasound. PLAN: 1. The patient has received IV fluids for possible sepsis. The patient will be switched from dopamine to Levophed. 2. Broad-spectrum antibiotics and cultures. 3. Echocardiogram. 4. Packed red blood cells and FFP. 5. Hold the warfarin. 6. Echocardiogram. 7. Enteral feedings. 8. CT scan of the abdomen and pelvis is ordered. Bronson Jameson MD [facility]/MODL /[id number]
[2018-09-22] MEDS: NOREPINEPHRINE INJ 4MG/4ML 8 MG in DEXTROSE 5% 250ML 250 ML IV SCH ×2 (10:14→18:32)
[2018-09-22] MEDS: PANTOPRAZOL 40MG/SOD CHL 0.9% 50 ML IV SCH ×4 (10:15→23:59)
[2018-09-22] MEDS ORDERED: SODIUM CHLORIDE 0.9% 250ML 250 ML ONE (10:44)
[2018-09-22 11:01] LABS: ABG HCO3 24 mmol/L (23-28); ABG PCO2 28 mmHg (41-51); ABG PH 7.53 (7.31-7.41); ABG PO2 120 mmHg (80-105)
--- NOTE | 2018-09-22 11:48 | Diagnostic Imaging Report ---
EXAM: CT Abdomen and Pelvis without contrast INDICATION: Possible retroperitoneal hematoma; altered mental status, encephelopathy COMPARISON: Abdominal ultrasound 09/16/2018. KUB 09/11/2018. TECHNIQUE: Abdomen and pelvis were scanned utilizing a multidetector helical scanner from the lung base to the pubic symphysis without administration of IV contrast. Lack of IV contrast limits evaluation of visceral and vascular structures. Coronal and sagittal reformations were obtained. Routine protocol was performed. COMPLICATIONS: None RADIATION DOSE: Total DLP: 1369.5 mGy*cm Dose modulation, iterative reconstruction, and/or weight based adjustment of the mA/kV was utilized to reduce the radiation dose to as low as reasonably achievable. FINDINGS: LINES and TUBES: None. LOWER THORAX: Patchy and consolidative opacities in the left greater than right lower lobes. Mild cardiomegaly. Coronary atherosclerosis. Mitral annular calcifications. HEPATOBILIARY: Cirrhotic morphology to the liver. No evidence of focal lesion. No biliary ductal dilation. GALLBLADDER: Layering calcifications within the gallbladder without evidence of cholecystitis. SPLEEN: No splenomegaly. PANCREAS: No focal masses or ductal dilatation. ADRENALS: No adrenal nodules KIDNEYS/URETERS: Kidneys enhance symmetrically. No evidence of hydronephrosis, solid mass, or stone. GI TRACT: No evidence of wall thickening or bowel distension. There are post surgical changes of appendectomy.. PELVIC ORGANS/BLADDER: Somewhat limited evaluation secondary to left hip hardware streak artifact. Fine catheter is present within a decompressed bladder. LYMPH NODES: No lymphadenopathy. VESSELS: There is moderate atherosclerotic disease in the aorta and major arterial branches. There is a left-sided IVC and a possible diminutive right sided IVC. PERITONEUM / RETROPERITONEUM: No free air or fluid. BONES AND SOFT TISSUES: No acute osseous abnormality. No suspicious lytic or blastic lesions. Diffuse mild anasarca. Partially seen left total hip arthroplasty. CONCLUSION: No evidence of retroperitoneal hematoma. Patchy and consolidative pneumonia in the left greater than right lower lobes. Cirrhotic morphology to the liver. Cholelithiasis without CT evidence of cholecystitis. Signed by: Dr. Becca Herrera MD on 09/22/2018 11:44 AM
[2018-09-22] MEDS ORDERED: VECURONIUM BROMIDE FOR INJ 20 MG VIAL ONE (12:48)
[2018-09-22] MEDS ORDERED: WATER STERILE 10 ML VIAL ONE (12:48)
[2018-09-22] MEDS ORDERED: MIDAZOLAM HCL 2 MG/2 ML VIAL ONE (12:48)
[2018-09-22] MEDS: MEROPENEM 1GM 100 ML IV SCH ×2 (14:00→21:43)
[2018-09-22] MEDS ORDERED: MEROPENEM 1GRAM 1 GM in SODIUM CHLORIDE 0.9% 100 ML 100 ML IV SCH (14:00)
--- NOTE | 2018-09-22 14:19 | NUR ---
[address] [facility] FOR DR PEREZ CONSULT. @1412 S/W [facility] REGARDING CONSULT FOR DR SMITH OR DR PUTNAM, THEY WILL NOTIFY. @ 1426 S/W DR STONE REGARDING CONSULT.
[2018-09-22 16:45] LABS: HEMATOCRIT 27.5 % (38.2-49.6); HEMOGLOBIN 8.9 g/dL (14.0-18.0)
[2018-09-22 17:03] LABS: INR 2.49; PROTHROMBIN TIME 27.6 seconds (11.9-14.5)
--- NOTE | 2018-09-22 19:19 | NUR ---
SPOKE WITH DR Cullen POLLARD P[ATIENT CLEAR FOR EGD TOMORROW FROM HIS STANDPOINT
--- NOTE | 2018-09-22 19:34 | NUR ---
SPOKE WITH DR Roque POLLARD AND PATIENT IS CLEAR FOR EGD TOMORROW, MESSAGE LEFT DR PUTNAM
[2018-09-22 19:46] LABS: HEMOGLOBIN 8.4 g/dL (14.0-18.0)
--- NOTE | 2018-09-22 20:38 | NUR ---
CRITICAL CARDIAC MARKER LEVELS REPORTED TO DR Roque POLLARD, NO NEW ORDERS, STILL CLEAR FOR EGD TOMORROW
--- NOTE | 2018-09-22 21:30 | NUR ---
DR Roque POLLARD IN TO SEE PATIENT, MADE AWARE OF 12 BEAT RUN OV VTACH PATIENT HAD AT 2048. ORDERS TO OBTAIN CONSENT FOR HEART CATH IN AM, HE WANTS HEART CATH TO BE DONE PRIOR TO EGD. STATES HE WILL TALK TO PATIENT'S FAMILY REGARDING PROCEDURE IN AM AND CONSENT CAN BE OBTAINED AT THAT TIME
--- NOTE | 2018-09-22 21:41 | NUR ---
MESSAGE LEFT FOR DR PUTNAM REGARDING DR Roque POLLARD WANTING TO PERFORM HEART CATH PRIOR TO EGD BEING DONE
--- NOTE | 2018-09-22 22:00 | NUR ---
MULTIPLE ATTEMPTS TO PLACE NGT OR OGT WITHOUT SUCCESS, UNABLE TO PASS NGT THROUGH EITHER NARE DUE TO SIGNIFICANT RESISTANCE AND THEN BLEEDING NOTED. UNSUCCESSFUL X 2 TO PASS OGT AND THEN BLEEDING NOTED. NO FURTHER ATTEMPTS MADE
[2018-09-22] MEDS: AMIODARONE HCL 900 MG in DEXTROSE 5 % 500ML BOTTLE 500 ML IV SCH (22:32)
--- NOTE | 2018-09-22 23:47 | History and Physical ---
HISTORY OF PRESENT ILLNESS: This is a patient who is a 77-year-old white male. He was recently in the hospital here. He was discharged about a week ago to skilled care facility. According to his , he was doing well, but yesterday became confused, not feeling well, came to the emergency room. He is currently intubated. He was short of breath. There was no fever or chills before he came here, but he is short of breath, had to be intubated. The patient also today had six loose stools. I was asked to see him. As mentioned above, the patient does not provide any meaningful information. PAST MEDICAL HISTORY: He does have history of hip replacement, atrial fibrillation, hypertension, appendectomy, status post colonoscopy, hypertension. PAST SURGICAL HISTORY: As above. SOCIAL HISTORY: There is no smoking, drug abuse, or alcohol abuse. FAMILY HISTORY: Could not be obtained. REVIEW OF SYSTEMS: Currently, he is intubated. According to the , he was doing well until this happened. The patient was admitted. He was here and discharged on September 17. The patient at that time he had acute on chronic congestive heart failure, atrial fibrillation, hypertension, diabetes mellitus type 2, hyperlipidemia, anemia, thrombocytopenia, hypocalcemia. The patient had the left total hip replacement, left eye retinal detachment repair. FAMILY HISTORY: Cancer, both mother and father. SOCIAL HISTORY: No smoking, drug abuse, alcohol abuse. The patient was here recently for admission above with congestive heart failure. He was given Lasix. Apparently, did improve and discharged home. Now, he is back with shortness of breath. LABORATORY DATA: Reviewed. He had a CT scan of abdomen and pelvis, which showed no evidence of hematoma, patchy consolidation, consistent with pneumonia. His blood cultures are pending. His white count is 6.6. His hemoglobin is 6.5 and his hematocrit 21. Sodium 140, potassium 4.2, glucose of 240, lactic acid 32.2. PHYSICAL EXAMINATION: GENERAL: He is currently intubated, sedated, does not seem to be in acute distress. VITAL SIGNS: Stable. Currently afebrile. Temperature of 97.0. HEENT: Normocephalic. Oral intubation. NECK: Supple. CHEST: Few crackles. COR: S1, S2. No S3, S4, or murmur. ABDOMEN: Soft. Bowel sounds present. EXTREMITIES: No edema. SKIN: No rash. IMPRESSION: 1. Healthcare-associated pneumonia, concerned about aspiration. He is currently on meropenem. Continue with meropenem. 2. Diarrhea, could be drug related, antibiotic related. We will obtain stools for C. diff. 3. Sepsis and acidosis on admission. 4. Respiratory failure. 5. History of congestive heart failure. 6. Chronic atrial fibrillation. 7. Anemia acute on chronic. 8. Thrombocytopenia. 9. Hepatomegaly. Concern about liver cirrhosis, source here is unclear. Obtain hepatitis A, B, C, it could be CASIANO. 10. Obtain stools for C. difficile. Discussed with . Discussed with nursing team. Thank you for asking me to see this patient. MD ODIN Farooq/BRYANT /[id number]
[2018-09-23] VITALS (26 sets, daily range): BP systolic 67–122; BP diastolic 34–51
--- NOTE | 2018-09-23 01:52 | Consultation ---
DATE OF CONSULTATION: 09/22/2018 GI Consult Note REASON FOR CONSULTATION: Acute blood loss anemia. HISTORY OF PRESENTING ILLNESS: A 77 years old very pleasant white male, who got just discharged from this hospital last week. I saw him in consultation for evaluation of anemia with heme-positive stool. He was also noted to have a pancytopenia, therefore Hematology Service was also consulted. On last admission, he was found to have congestive heart failure, pulmonary edema. He was being diuresed. The patient was being followed by Cardiology as well as Pulmonary service. I had decided that the patient should get upper endoscopy as well as colonoscopy as an outpatient. The patient's hemoglobin remained stable. It was decided that the patient should undergo invasive procedure once he is medically stable. Apparently, patient got readmitted within few days after discharge. He came last night with altered mental status. He got admitted in ICU, got intubated, acute cardiac event has been ruled out with negative cardiac markers. Chest x-ray showed stable cardiomegaly with some pulmonary prominence. He is currently on vasopressors. His blood work revealed hemoglobin of 6.5 yesterday. Prior to discharge on last admission, his hemoglobin was 8.0 on 09/17/2018. The patient takes warfarin for atrial fibrillation. PT, INR on this admission was noted at 32.2 and 3.04 respectively. While being in ICU, he has had several loose black tarry stools. Therefore, he was started on Protonix infusion. The patient received 1 unit of packed red blood cell transfusion with which hemoglobin has climbed up to 8.9. REVIEW OF SYSTEMS: Unobtainable, patient is currently intubated on respiratory support. PAST SURGICAL HISTORY: Hip replacement, appendectomy. PAST MEDICAL HISTORY: Chronic atrial fibrillation, hypertension, and congestive heart failure, on warfarin. FAMILY HISTORY: Negative for any GI or ASSOCI[employer] malignancies. SOCIAL HISTORY: No smoking, alcohol, or any illicit drug use. ALLERGIES: NONE. HOME MEDICATIONS: Vitamin C, docusate, ferrous sulfate, furosemide, insulin Humulin N 10 units at bedtime, lisinopril 10 mg daily, pantoprazole 40 mg daily, pravastatin 80 mg daily, spironolactone 50 mg daily, ticagrelor 90 mg twice daily, and warfarin 9 mg at bedtime. INPATIENT MEDICATIONS: Reviewed as per JUN, he is on Levophed infusion, PPI as Protonix infusion. He is also getting meropenem along with other medications. PHYSICAL EXAMINATION: VITAL SIGNS: Temperature 98.7, pulse 82, respirations 18-24, blood pressure 114/76, oxygen saturation 100% on FiO2 of 40%. GENERAL: Intubated and sedated on mechanical ventilator. HEENT: Moist mucous membranes. Anicteric sclerae. CVS: S1 and S2, regular. LUNGS: Bilateral scattered rales. ABDOMEN: Protuberant belly, soft, nondistended, nontender. No mass or hernia. Positive bowel sounds. Tenderness cannot be elicited. EXTREMITIES: Warm. 1+ bilateral leg edema. LABORATORY DATA: WBC 6.60, hemoglobin 6.5, hematocrit 21.4, MCV 96.8, and platelet count 149. After receiving 1 unit of packed red blood cells, hemoglobin has climbed up to 8.9. Sodium 140, potassium 4.2, chloride 104, bicarb 26, BUN 51, creatinine 1.15, calcium 8.0. PT 27.6, INR 2.49. Stool C difficile pending. Stool occult blood heme-positive. Urinalysis negative except wbc 6-10 per high-power field, rbc's 6-10 per high-power field, nitrite negative, leukocyte esterase negative. CT of the abdomen and pelvis without contrast showed no evidence of: 1. Retroperitoneal hematoma. 2. Patchy and consolidative pneumonia in the left greater than right lower lobe. 3. Cirrhotic morphology to the liver. 4. Cholelithiasis without CT evidence of cholecystitis. IMPRESSION: 1. Acute blood loss anemia with a black tarry stool. This could also be due to oral ingestion of iron. 2. Sepsis, on vasopressor and respiratory support. PLAN: I agree to continue PPI drip. Monitor his stool. No need to monitor serial hemoglobin unless the patient has another episode of GI bleeding. If Cardiology clears, then perform upper endoscopy tomorrow. I thank Dr. Jameson for allowing me to participate in the care of this patient. Nathan Patel MD [facility]/MODL /[id number]
[2018-09-23 04:07] LABS: BASOPHILS # (AUTO) 0.1 (0.0-0.1); BASOPHILS % 0.5 % (0.0-1.0); EOSINOPHILS % 0.1 % (0.0-6.0); HEMATOCRIT 25.2 % (38.2-49.6); HEMOGLOBIN 8.4 g/dL (14.0-18.0); LYMPHOCYTES # (AUTO) 1.8 (1.0-3.2); LYMPHOCYTES % 10.8 % (18.0-39.1); MEAN CORPUSCULAR HEMOGLOBIN 30.3 pg (28-32); MEAN CORPUSCULAR HGB CONC 33.3 g/dL (31-35); MONOCYTES # (AUTO) 2.1 (0.2-0.8); MONOCYTES % 12.4 % (4.4-11.3); NEUTROPHILS # (AUTO) 12.8 (2.1-6.9); NEUTROPHILS % 75.3 % (38.7-80.0); PLATELET COUNT 150 x10e3/uL (140-360); RED BLOOD COUNT 2.77 x10e6/uL (4.3-5.7); RED CELL DISTRIBUTION WIDTH 16.3 % (11.7-14.4)
[2018-09-23 04:16] LABS: INR 2.51; PROTHROMBIN TIME 27.8 seconds (11.9-14.5)
[2018-09-23 04:17] LABS: PARTIAL THROMBOPLASTIN TIME 46.8 seconds (23.8-35.5)
[2018-09-23 04:26] LABS: ALBUMIN 2.4 g/dL (3.5-5.0); ANION GAP 14.8 mmol/L (8-16); CALCIUM 7.9 mg/dL (8.4-10.2); CREATININE, SERUM 1.45 mg/dL (0.72-1.25); MAGNESIUM 1.2 MG/DL (1.3-2.1); POTASSIUM 3.8 mmol/L (3.5-5.1)
[2018-09-23] MEDS: MEROPENEM 1GM 100 ML IV SCH ×7 (05:34→23:42)
[2018-09-23] MEDS: PANTOPRAZOL 40MG/SOD CHL 0.9% 50 ML IV SCH (05:34)
[2018-09-23 07:06] LABS: ANISOCYTOSIS SLIGHT; HYPOCHROMASIA SLIGHT; LYMPHOCYTES % (MANUAL) 5 % (19-48); MONOCYTES % (MANUAL) 13 % (3.4-9.0); MYELOCYTES % (MANUAL) 1 % (0-0); NEUTROPHILS % (MANUAL) 81 % (40-74); PLATELET ESTIMATE SLIGHTLY DECREASED; PLATELET MORPHOLOGY COMMENT FEW LARGE; RBC MORPHOLOGY COMMENT NORMAL
[2018-09-23] MEDS ORDERED: LIDOCAINE HCL 2% LOCAL 20 ML VIAL ONE (07:45)
[2018-09-23] MEDS ORDERED: SODIUM CHLORIDE 0.9% 1000ML 1,000 ML ONE ×2 (07:46→15:37)
[2018-09-23] MEDS ORDERED: HEPARIN SOD/SOD CHLORIDE 2,000 ML ONE (07:46)
[2018-09-23] MEDS ORDERED: IOPAMIDOL 370 MG/ML 200 ML INFUS..BTL INJ ONE ×2 (07:46→08:47)
--- NOTE | 2018-09-23 08:02 | NUR ---
pt to engineering lab technician, s/o lul grossman at bedside, consented for cath after dr coley explained procedure and possible contraindication and anticipated outcomes. no further questions at this time.
[2018-09-23] MEDS ORDERED: BIVALRIUDIN 250 MG/VIAL VIAL IV ONE ×2 (08:38→09:13)
[2018-09-23] MEDS ORDERED: SODIUM CHLORIDE 0.9% 50ML 50 ML ONE ×2 (08:38→09:14)
[2018-09-23] MEDS: ASCORBIC ACID 500 MG TAB PO SCH ×2 (09:00→17:00)
[2018-09-23] MEDS ORDERED: HEPARIN SOD/SOD CHLORIDE 1,000 ML ONE (09:03)
[2018-09-23] MEDS ORDERED: CLOPIDOGREL BISULFATE 75 MG TAB PO ONE (09:45)
[2018-09-23] MEDS ORDERED: SODIUM CHLORIDE 0.9% 250ML 250 ML ONE (12:14)
--- NOTE | 2018-09-23 12:19 | Operative Report ---
DATE OF PROCEDURE: 09/23/2018 SURGEON: Manjinder Jameson MD DIAGNOSES: 1. Cardiogenic shock. 2. Non-Q-wave myocardial infarction. 3. Coronary artery disease. PROCEDURES PERFORMED: Include: 1. Stent placement in the left anterior descending artery. 2. Left heart catheterization. COMPLICATIONS: None. ANESTHESIA: Versed, fentanyl, and lidocaine. TECHNIQUE: The right groin was draped and prepped in the usual manner. The area was anesthetized with lidocaine. Standard Seldinger technique was used to place a 6-Telugu sheath into the right femoral artery without difficulty. A JL5 catheter was used to selectively engage the left coronary artery. A 3DRC catheter was used to selectively engage the right coronary artery. A pigtail catheter was used to perform a left ventriculogram. Attention was then turned to the 100% occlusion of the left anterior descending artery. The patient was bolused with Angiomax and started on an Angiomax drip. An XB 4.0 guiding catheter was used to selectively engage the left coronary artery. A Whisper wire was used to cross the area of 100% occlusion. The area was pre-dilated with a 2.5 mm x 12 mm balloon. A 3.0 x 20 mm stent was then deployed at 16 atmospheres for 30 seconds. A second 3.0 x 32 mm stent was then deployed at 16 atmospheres for 30 seconds. A third stent 3.0 x 20 mm was then deployed at 16 atmospheres for 30 seconds. All the stents were post dilated with a 3.25 mm x 15 mm noncompliant balloon. There was minimal residual stenosis. An Angio-Seal device was used for closure. There were no complications. RESULTS: 1. There is a normal left main trunk. 2. There is a large left anterior descending artery, which shows 100% occlusion at the junction of the proximal and middle thirds immediately after the origin of a diagonal branch. 3. There was a medium-sized AV circumflex artery, which gave rise to a large bifurcating obtuse marginal branch. There was minimal disease in the circumflex system. 4. There was a large dominant right coronary artery with minimal disease. 5. The left ventriculogram demonstrated akinesis of the anterior wall with overall severe left ventricular dysfunction and an ejection fraction of 25%. CONCLUSION: Successful stent placement in the left anterior descending artery without complication. MD SID Lyman/MODL /[id number] cc: Robin Neville MD
--- NOTE | 2018-09-23 12:28 | NUR ---
dr santiago performing egd at this time. dr herr notified of bs, orders recvd and being completed.
[2018-09-23] MEDS ORDERED: DEXTROSE 50% SYRINGE 50 ML IV PRN (12:30)
[2018-09-23] MEDS: INSULIN LISPRO 100 UNIT/1 ML 3ML VIAL SQ SCH ×2 (13:09→18:12)
[2018-09-23 13:48] LABS: HEMATOCRIT 26.3 % (38.2-49.6); HEMOGLOBIN 8.3 g/dL (14.0-18.0)
--- NOTE | 2018-09-23 13:54 | Progress Note ---
DATE: 09/23/2018 SUBJECTIVE: The patient went for a cardiac catheterization and had a stent placed in the left anterior descending artery. He had an upper endoscopy that showed no active bleeding, although he does have some coffee-ground drainage from his NG tube. He remains on Levophed at 13 mcg/kg per minute. He is off vasopressin. He remains on an assist-control mode of ventilation. OBJECTIVE: VITAL SIGNS: The patient is afebrile. The blood pressure is 101/45 on 13 mcg of Levophed. Saturation is 100% and the pulse is 78. He remains on assist-control ventilation. HEENT: Shows an oral endotracheal tube. There is a subclavian line on the right side. CARDIAC: Reveals a regular rate and rhythm with a normal S1 and S2. There are no murmurs or rubs heard. LUNGS: Auscultation of lungs reveals crackles bilaterally. There is no wheezing. ABDOMEN: Soft and nontender. There is no rebound or guarding. EXTREMITIES: Show no leg edema or calf tenderness. There is no cyanosis or clubbing. SKIN: Shows no rashes. LABORATORY DATA: White blood cell count is 16.7 with a hemoglobin of 8.4. The platelet count is 150. BUN to creatinine ratio is 65 to 1.45 and the other electrolytes are within normal limits. IMPRESSION: 1. Pneumonia with severe sepsis, present on admission. 2. Myocardial infarction with elevated troponins. 3. Gastrointestinal hemorrhage with acute blood loss. 4. Anemia secondary to acute blood loss. 5. Acute respiratory failure. 6. Thrombocytopenia. 7. Coagulopathy. 8. Abnormal liver appearance, possibly representing cirrhosis. PLAN: 1. Continue current antibiotics. 2. Repeat hemoglobin and give packed red blood cells as necessary. 3. Continue pressors. 4. Repeat ABG. 5. Case discussed with Cardiology, and [place] nurse practitioner. Greater than 35 minutes in direct critical care time. Bronson Jameson MD [facility] /[id number]
[2018-09-23] MEDS ORDERED: ALBUMIN 25% 12.5GM 0.25 GM/ML BTL IV ONE (14:15)
--- NOTE | 2018-09-23 15:01 | NUR ---
RT SUBLAVIAN DISLODGED. DR FORD NOTIFIED. OK FOR PICC. S/O NOTIFIED AND OBTAINED A TELEPHONE CONSENT. OK TO INSERT PICC WITH INR 2.[address] FORD.
--- NOTE | 2018-09-23 15:33 | NUR ---
PT IN ICU ON VENTILATOR RAPID RESPONSE WITH HEART RATE OF 30'S GI BLEED 3 UNITS PRBC'S TROPONINS ELEVATED EMERGENT CATH WITH PTCA AND STENT OF LAD
--- NOTE | 2018-09-23 15:57 | Diagnostic Imaging Report ---
Chest, 1 view, 09/23/2018. History: PICC placement. Comparison: 09/22/2018. Findings: The cardiomediastinal silhouette and pulmonary vasculature are prominent with hazy bilateral perihilar opacities. There is no focal consolidation. Right upper extremity PICC terminates near the cavoatrial junction. ET and NG tubes are present. NG tube terminates below the left hemidiaphragm. There are no acute osseous or soft tissue abnormalities. Impression: PICC line in adequate position. Signed by: Ishmael Gonzalez on 09/23/2018 3:54 PM
[2018-09-23 16:58] LABS: ABG HCO3 25 mmol/L (23-28); ABG PCO2 33 mmHg (41-51); ABG PH 7.49 (7.31-7.41); ABG PO2 128 mmHg (80-105)
--- NOTE | 2018-09-23 17:31 | NUR ---
Nutrition Intervention Note RD Recommendation(s) for Physician: -With the presence of Levophed at 13 mcg/kg per minute, rec to initiate trickle feeding with Vital HP @10mL/hr to maintain gut integrity; when pt is hemodynamically stable (Levophed <5mcg/min and MAP >60) , advance as tolerated to goal rate of 65mL/hr (1560kcal, 137g protein, 1304mL water) -50mL water flushes q 4hr; additional water per MD -Check labs, GI tolerance, and weight -If GI tract is not ok to feed, rec to consult for PN rec Plan of Care: RD following, monitoring for tolerance and adequacy, TF rec Nutrition reason for involvement: Intubated/ ventilated RD Assessment 09/23: 77yo M, who was admitted for AMS and hypotension. Pt was discussed during AM rounds. Pt went for heart cath and stent placement yesterday. Upped endoscopy showed no active bleeding but pt had coffee ground drainage from NGT. Pt remains at Levophed at 13 mcg/kg per minute. He is off vasopressin. CT abd/pel on 09/22 showed PNA, cirrhosis, and cholelithiasis. Negative blood culture. Reviewed medical record from his recent admission. Will continue to monitor and follow. Principal Problems/Diagnoses: 1. Pneumonia with severe sepsis, present on admission. 2. Myocardial infarction with elevated troponins. 3. Gastrointestinal hemorrhage with acute blood loss. 4. Anemia secondary to acute blood loss. 5. Acute respiratory failure. 6. Thrombocytopenia. PMH: DM, HTN, HLD GI: abdomen soft, non-tender, round Skin: no pressure wound noted Labs: (09/23) BUN 65 H, Creatinine 1.45 H, Glucose 347 H, Ca 7.9 L, Mg 1.2 L, AST 206 H Meds: Insulin, norepinephrine (13mcg/min), versed Ht: 71in (Obtained from last visit 09/14) Wt: 277lb (Obtained from last visit 09/14) ; 320lb (09/23) BMI: 38.6kg/m2 IBW: 172lb Malnutrition Evaluation (09/23/2018) The patient does not meet criteria for a specified degree of malnutrition at this time. Will re-evaluate at follow-up as appropriate. Nutrition Prescription (Diet Order): NPO Estimated Nutritional Needs: Calories: 1560-1950kcal(20-25kcal/kg/d) Weight used: IBW Protein: 117 195g(1.5-2.5) Weight used: IBW Diet Adequacy: Not meeting calorie needs, Not meeting protein needs Diet Education Needs Assessment: Diet education indicated, but patient not appropriate for education at this time. Nutrition Care Level: mod Nutrition Diagnosis: Inadequate oral intake related to current medical status (intubated / ventilated) as evidenced by pt requiring EN as main source of nutrition. Goal: Patient will meet 75-100% of estimated needs by follow up Progress: N/A Interventions: Composition, Rate, Route, IVF, Prescription medications Monitoring/Evaluation: Total energy intake, Total protein intake, Formula/Solution, IVF, Weight change, Labs, Gastric tolerance Signed: Dianna Berrios MS, RD, LD
--- NOTE | 2018-09-23 19:06 | NUR ---
Spoke with Dr. Mane, he was unaware of consult. Informed of patient history, current status, current labs and output for today. He will see patient tomorrow
[2018-09-23 19:46] LABS: HEMATOCRIT 24.5 % (38.2-49.6); HEMOGLOBIN 7.7 g/dL (14.0-18.0)
--- NOTE | 2018-09-23 20:25 | NUR ---
H&H RESULTS CALLED TO DR STONE - ORDERS RECEIVED TO TRANSFUSE 2 UNITS PRBC, LAB REQUEST ENTERED
[2018-09-23] MEDS ORDERED: SODIUM CHLORIDE 0.9% 250ML 250 ML IV ONE (20:30)
[2018-09-23] MEDS: AMIODARONE HCL 900 MG in DEXTROSE 5 % 500ML BOTTLE 500 ML IV SCH (21:32)
[2018-09-24] VITALS (30 sets, daily range): BP systolic 70–143; BP diastolic 34–64
--- NOTE | 2018-09-24 02:02 | Consultation ---
DATE OF CONSULTATION: 09/22/2018 CONSULTING PHYSICIAN: John Sainz MD, Hematology-Oncology Service. REASON FOR CONSULTATION: Evaluation and management of patient with known history of pancytopenia, now presents with GI bleed. HISTORY OF PRESENTING ILLNESS: Mr. Gardiner is a very pleasant 77-year-old gentleman, who is known to me from previous hospitalization. He has history of atrial fibrillation and on chronic anticoagulation with Coumadin, hypertension, congestive heart failure, and pancytopenia, who was recently discharged from the hospital after getting treated for volume overload. He is now presented to the emergency department due to altered mental status. He was noted to be severely anemic with hemoglobin of 6.5 with active GI bleeding. He was admitted to intensive care unit in intubated state. He was seen and evaluated by GI and underwent workup as well as given transfusion. He was started on Protonix drip. Hematology-Oncology has been consulted to assist with the management. Presently, the patient is in intensive care unit, intubated, sedated, and on pressors. PAST MEDICAL HISTORY: 1. History of pancytopenia. 2. Atrial fibrillation on chronic anticoagulation with warfarin. 3. Hypertension. 4. Coronary artery disease. PAST SURGICAL HISTORY: 1. Hip replacement. 2. Appendectomy. 3. Multiple EGD and colonoscopy. FAMILY HISTORY: Negative for malignancies. SOCIAL HISTORY: Reportedly no history of smoking, alcohol use, or illicit drug use. ALLERGIES: NO KNOWN DRUG ALLERGIES. CURRENT MEDICATIONS: Reviewed as per electronic medical record. REVIEW OF SYSTEMS: Unobtainable. PHYSICAL EXAMINATION: VITAL SIGNS: Reviewed. HEAD: Atraumatic. NECK: Supple. CVS: S1, S2 audible. Tachycardia. RESPIRATORY: Decreased bilateral air entry. ABDOMEN: Soft. Positive bowel sounds. EXTREMITIES: Positive edema. NEURO: Altered mental status. LABORATORY DATA: Reviewed. ASSESSMENT AND PLAN: Mr. Gardiner is a 77-year-old gentleman, who is known to me and has a history of congestive heart failure, hypertension, and chronic atrial fibrillation, for which he has been on anticoagulation and warfarin, who was recently discharged from the hospital after getting treated for pulmonary edema and congestive heart failure. He is now presented to the Emergency Department due to altered mental status and noted to be severely anemic, coagulopathic, and having GI bleeding. He was admitted to intensive care unit in intubated state. He was seen and evaluated by GI and presently underwent workup. Hematology-Oncology has been consulted to assist with the management. I have reviewed the record and discussed at length with the GI service. At this point, recommendation would be to continue with transfusion to keep hemoglobin above 8. He has been started on Protonix drip. We will give FFP on as needed basis. Mostly, supportive care and reversal of coagulopathy. Thank you for the consult. I will continue to be available. Please call with questions. MD JAIR Guzmán/[facility] /[id number]
[2018-09-24] MEDS ORDERED: SODIUM CHLORIDE 0.9% 250ML 250 ML ONE (02:45)
[2018-09-24] MEDS ORDERED: NOREPINEPHRINE 8 MG/D5W 250 ML 250 ML ONE (05:46)
--- NOTE | 2018-09-24 06:37 | Diagnostic Imaging Report ---
EXAMINATION: CHEST SINGLE (PORTABLE) COMPARISON: Chest x-ray 09/23/2018 INDICATION: Respiratory failure ^Resp Failure DISCUSSION: Frontal view of the chest obtained at 0516 hours. The image is motion degraded. HEART AND MEDIASTINUM: Stable cardiomegaly LINES: Endotracheal tube and enteric tube, if present, are not visible. Right PICC line terminates in the SVC. LUNGS: Baseline hyperinflation. Pulmonary vascular congestion is similar. There are increasing bibasilar opacities. PLEURA: No large effusions. No pneumothorax. BONES AND SOFT TISSUES: Unremarkable. IMPRESSION: Motion degraded exam. Increasing bibasilar airspace opacities, either atelectasis or pneumonia. Endotracheal tube, if present, is not visualized. Signed by: Dr. Stevie Rogers MD on 09/24/2018 6:34 AM
[2018-09-24] MEDS: INSULIN LISPRO 100 UNIT/1 ML 3ML VIAL SQ SCH ×4 (07:30→23:48)
[2018-09-24] MEDS ORDERED: MIDAZOLAM HCL 2 MG/2 ML VIAL IV NR (08:11)
[2018-09-24] MEDS: MEROPENEM 1GM 100 ML IV SCH ×3 (08:15→22:34)
[2018-09-24] MEDS: ASCORBIC ACID 500 MG TAB PO SCH ×2 (08:16→17:45)
[2018-09-24] MEDS: CLOPIDOGREL BISULFATE 75 MG TAB PO SCH (08:16)
[2018-09-24] MEDS: NOREPINEPHRINE INJ 4MG/4ML 8 MG in DEXTROSE 5% 250ML 250 ML IV SCH (08:35)
[2018-09-24] MEDS: MIDAZOLAM HCL 25 MG in SODIUM CHLORIDE 0.9% 50ML 45 ML IV PRN ×2 (08:59→20:46)
[2018-09-24] MEDS: AMIODARONE HCL 900 MG in DEXTROSE 5 % 500ML BOTTLE 500 ML IV SCH (08:59)
[2018-09-24 09:03] LABS: BASOPHILS # (AUTO) 0.1 (0.0-0.1); BASOPHILS % 0.6 % (0.0-1.0); EOSINOPHILS # (AUTO) 1.2 (0.0-0.4); EOSINOPHILS % 11.7 % (0.0-6.0); HEMATOCRIT 27.9 % (38.2-49.6); LYMPHOCYTES # (AUTO) 1.3 (1.0-3.2); LYMPHOCYTES % 12.4 % (18.0-39.1); MEAN CORPUSCULAR HEMOGLOBIN 30.3 pg (28-32); MEAN CORPUSCULAR HGB CONC 32.3 g/dL (31-35); MEAN CORPUSCULAR VOLUME 93.9 fL (81-99); MONOCYTES # (AUTO) 1.2 (0.2-0.8); MONOCYTES % 11.4 % (4.4-11.3); NEUTROPHILS # (AUTO) 6.5 (2.1-6.9); NEUTROPHILS % 63.2 % (38.7-80.0); PLATELET COUNT 106 x10e3/uL (140-360); RED BLOOD COUNT 2.97 x10e6/uL (4.3-5.7); RED CELL DISTRIBUTION WIDTH 16.1 % (11.7-14.4)
[2018-09-24 09:20] LABS: ALBUMIN 2.4 g/dL (3.5-5.0); ALBUMIN/GLOBULIN RATIO 0.9 (0.8-2.0); ANION GAP 10.6 mmol/L (8-16); CALCIUM 7.9 mg/dL (8.4-10.2); CREATININE, SERUM 1.18 mg/dL (0.72-1.25); POTASSIUM 3.6 mmol/L (3.5-5.1)
--- NOTE | 2018-09-24 13:19 | Progress Note ---
DATE: 09/24/2018 SUBJECTIVE: The patient had a cardiac catheterization and stent placed in the left anterior descending artery yesterday. Upper endoscopy yesterday showed no active bleeding. The hemoglobin has remained stable. The patient remains on Levophed at 10 mcg. The vasopressin has been weaned off. The patient is starting enteral feedings this morning. He remains on an assist-control mode of ventilation. PHYSICAL EXAMINATION: VITAL SIGNS: The patient is afebrile. The blood pressure is 115/51 and the saturation is 100%. He is on assist-control mode of ventilation and rate is 16. He is on 10 mcg of Levophed. HEENT: Shows no facial swelling or erythema. The oropharynx is normal. There is an oral endotracheal tube. The subclavian line on the right side looks clean. There is no drainage. CARDIAC: Reveals regular rhythm with normal S1, S2. There are no murmurs or rubs. LUNGS: Auscultation of lungs shows clear breath sounds bilaterally. There is no wheezing. ABDOMEN: Soft and nontender. There is no rebound or guarding. EXTREMITIES: Show no leg edema or calf tenderness. There is no cyanosis, clubbing. SKIN: Shows no rashes. NEUROLOGICAL: Shows no focal abnormalities. LABORATORY DATA: White blood cell count is 10 and hemoglobin is 9. The platelet count is 106. The BUN to creatinine ratio is normal at 69/1.18. The other electrolytes are within normal limits. IMPRESSION: 1. Pneumonia with septic shock, present on admission. 2. Acute myocardial infarction, requiring a PTCA and stent placement in the left anterior descending artery. 3. Anemia secondary to acute blood loss. 4. Acute respiratory failure. 5. Coagulopathy. 6. Thrombocytopenia. 7. Acute kidney injury. 8. Liver disease. PLAN: 1. Repeat ABG. 2. Continue enteral feedings. 3. Continue current antibiotics. 4. Wean Levophed as tolerated. 5. Add low-dose of Versed for sedation. 6. Case discussed with Gastroenterology, nursing and family. Greater than 35 minutes in direct critical care time. Bronson Jameson MD [facility] /[id number]
[2018-09-24 13:43] LABS: HEMATOCRIT 28.7 % (38.2-49.6); HEMOGLOBIN 9.2 g/dL (14.0-18.0)
[2018-09-24 16:38] LABS: ABG HCO3 26 mmol/L (23-28); ABG PCO2 35 mmHg (41-51); ABG PH 7.47 (7.31-7.41); ABG PO2 108 mmHg (80-105)
[2018-09-24] MEDS: PANTOPRAZOLE 40 MG 10ML VIAL IV SCH (17:45)
--- NOTE | 2018-09-24 18:06 | Consultation ---
DATE OF CONSULTATION: 09/24/2018 Nephrology Consultation Note CHIEF COMPLAINT: STEMI, hypotension. HISTORY OF PRESENT ILLNESS: This is a 77-year-old male, currently intubated and sedated, who had to go emergently for left heart catheterization in which had a coronary stent placed after he was found to have elevated troponins. The patient was also being treated for severe sepsis with pneumonia on presentation. He was also found to have a GI hemorrhage requiring a GI consultation, status post EGD with no evidence of any bleeding seen. He now has hematuria as well as thrombocytopenia and coagulopathy. He also has liver cirrhosis seen on imaging studies. Nephrology is consulted for acute kidney injury, now currently resolved. The patient has good urine output. Electrolytes are stable. The patient is seen and evaluated at bedside on the medical floor, currently intubated and sedated, spoke with the at bedside and with the nursing staff. REVIEW OF SYSTEMS: Shortness of breath. Unable to obtain the rest of the 14-point review of systems as the patient is currently intubated and sedated. ALLERGIES: NO KNOWN DRUG ALLERGIES. MEDICATIONS: He takes lisinopril 10 mg daily, Aldactone 50 IV, warfarin 9 mg at bedtime, ascorbic acid 500 mg p.o. b.i.d., iron tablets furosemide 80 b.i.d., Protonix, pravastatin, Brilinta. PAST MEDICAL HISTORY: Morbidly obese, hypertension, history of I believe AFib, he is on anticoagulation twice a day. PAST SURGICAL HISTORY: Reports none. FAMILY HISTORY: Hypertension and diabetes. SOCIAL HISTORY: No drugs or alcohol. Does not smoke. . PHYSICAL EXAMINATION: VITAL SIGNS: Temperature is 99.4, pulse 66, respiratory rate is 18, blood pressure was 107/42. He is currently on pressors. He is 100% on mechanical ventilator. FiO2 40%. GENERAL: Not in acute distress. Alert and oriented x3. Cooperative on examination. HEENT: Head is normocephalic and atraumatic. Eyes; pupils are equal, round, and reactive to light bilaterally. He is intubated and sedated. Throat, no evidence of erythema or exudates in the posterior pharynx. He has NG tube. NECK: Supple. Good range of motion. PULMONARY: He seems to be intubated and sedated, clear to auscultation. CARDIOVASCULAR: Positive S1, S2. No murmurs, rubs, or gallops appreciated. ABDOMEN: Soft, nondistended, and nontender to palpation. Bowel sounds present. MUSCULOSKELETAL: Unable to assess. NEUROLOGIC: Unable to assess. SKIN: Intact. Warm to touch. Good cap refill. PSYCHIATRIC: Unable to assess. EXTREMITIES: Does show 1+, 2+ pedal edema throughout. LABORATORY DATA: Labs show white count 10.3, hemoglobin 9, hematocrit is 27, platelets of 106. Chemistry; sodium 140, potassium 3.6, chloride 109, bicarb is 24, anion gap of 10, BUN 69, creatinine is 1.18, it peaked as high as 1.45, glucose 239. LFTs were normal. Albumin 2.4. IMAGING STUDIES: Chest x-ray shows increasing bibasilar airspace opacity, atelectasis or pneumonia. IMPRESSION: 1. Acute kidney injury, likely secondary to hypotension and underlying contrast. 2. [id number] myocardial infarction status post left heart catheterization with stent placement. 3. Septic shock. 4. Hematuria. PLAN: 1. From Nephrology perspective his creatinine is now back to normal. We will continue with same plan of care. Continue with aggressive IV fluids. 2. His electrolytes are stable. Replace electrolytes as needed. We will continue to follow the patient on a daily basis and monitor his creatinine very closely. Monitor strict in's and outs's as well as urine output. Once the patient's blood pressure is much improved, I will consider IV diuretics. He has significant amount of anasarca, but at this time, his blood pressure is a little low. He is on IV pressors. Thank you so much for this consultation. We will continue to follow with you. MD LORENA Yeager/[facility] /[id number]
[2018-09-24 19:48] LABS: HEMATOCRIT 26.8 % (38.2-49.6); HEMOGLOBIN 8.4 g/dL (14.0-18.0)
[2018-09-25] VITALS (37 sets, daily range): BP systolic 78–129; BP diastolic 38–115
[2018-09-25 00:07] LABS: BASOPHILS # (AUTO) 0.1 (0.0-0.1); BASOPHILS % 0.8 % (0.0-1.0); EOSINOPHILS # (AUTO) 0.3 (0.0-0.4); EOSINOPHILS % 3.1 % (0.0-6.0); HEMATOCRIT 27.5 % (38.2-49.6); HEMOGLOBIN 8.9 g/dL (14.0-18.0); LYMPHOCYTES # (AUTO) 1.9 (1.0-3.2); LYMPHOCYTES % 17.6 % (18.0-39.1); MEAN CORPUSCULAR HEMOGLOBIN 30.2 pg (28-32); MEAN CORPUSCULAR HGB CONC 32.4 g/dL (31-35); MEAN CORPUSCULAR VOLUME 93.2 fL (81-99); MONOCYTES # (AUTO) 1.3 (0.2-0.8); NEUTROPHILS % 65.9 % (38.7-80.0); PLATELET COUNT 131 x10e3/uL (140-360); RED BLOOD COUNT 2.95 x10e6/uL (4.3-5.7); RED CELL DISTRIBUTION WIDTH 16.6 % (11.7-14.4)
[2018-09-25 04:43] LABS: BASOPHILS # (AUTO) 0.1 (0.0-0.1); BASOPHILS % 0.9 % (0.0-1.0); EOSINOPHILS # (AUTO) 0.4 (0.0-0.4); EOSINOPHILS % 3.9 % (0.0-6.0); HEMATOCRIT 26.8 % (38.2-49.6); HEMOGLOBIN 8.4 g/dL (14.0-18.0); LYMPHOCYTES # (AUTO) 1.7 (1.0-3.2); LYMPHOCYTES % 18.6 % (18.0-39.1); MEAN CORPUSCULAR HEMOGLOBIN 29.9 pg (28-32); MEAN CORPUSCULAR HGB CONC 31.3 g/dL (31-35); MEAN CORPUSCULAR VOLUME 95.4 fL (81-99); MONOCYTES % 11.2 % (4.4-11.3); NEUTROPHILS # (AUTO) 6.1 (2.1-6.9); NEUTROPHILS % 64.9 % (38.7-80.0); PLATELET COUNT 124 x10e3/uL (140-360); RED BLOOD COUNT 2.81 x10e6/uL (4.3-5.7); RED CELL DISTRIBUTION WIDTH 16.8 % (11.7-14.4)
[2018-09-25 05:01] LABS: ANION GAP 9.4 mmol/L (8-16); BLOOD UREA NITROGEN 69 mg/dL (7-26); BUN/CREATININE RATIO 62 (6-25); CARBON DIOXIDE 27 mmol/L (22-29); CHLORIDE 107 mmol/L (98-107); CREATININE, SERUM 1.11 mg/dL (0.72-1.25); EST GLOMERULAR FILTRATION RATE > 60 ML/MIN (60-); GLUCOSE 190 mg/dL (74-118); MAGNESIUM 1.6 MG/DL (1.3-2.1); POTASSIUM 3.4 mmol/L (3.5-5.1); SODIUM 140 mmol/L (136-145)
[2018-09-25] MEDS: INSULIN LISPRO 100 UNIT/1 ML 3ML VIAL SQ SCH ×4 (06:00→23:37)
[2018-09-25] MEDS: MEROPENEM 1GM 100 ML IV SCH ×3 (06:49→22:04)
[2018-09-25] MEDS: MIDAZOLAM HCL 25 MG in SODIUM CHLORIDE 0.9% 50ML 45 ML IV PRN (06:49)
--- NOTE | 2018-09-25 06:49 | Diagnostic Imaging Report ---
EXAMINATION: CHEST SINGLE (PORTABLE) COMPARISON: Chest x-ray 09/24/2018 INDICATION: ^Resp Failure DISCUSSION: Frontal view of the chest obtained at 0557 hours. The image is underpenetrated. HEART AND MEDIASTINUM: Stable cardiomegaly and aortic tortuosity LINES: Endotracheal tube terminates 2 to 3 cm above the palak. Enteric tube cannot be seen distally due to the underpenetration of the image. Right PICC line terminates in the SVC. LUNGS: Pulmonary vascular congestion is stable. Bibasilar airspace opacities suggestive of atelectasis or infiltrate. PLEURA: No large effusions. No pneumothorax. BONES AND SOFT TISSUES: Stable. IMPRESSION: Support devices as described above. Stable cardiomegaly and pulmonary vascular congestion. Bibasilar airspace opacities are similar suggestive atelectasis or infiltrate. Small pleural effusions cannot be excluded. Signed by: Dr. Stevie Rogers MD on 09/25/2018 6:46 AM
[2018-09-25 07:06] LABS: ALBUMIN 2.2 g/dL (3.5-5.0)
[2018-09-25] MEDS: CLOPIDOGREL BISULFATE 75 MG TAB PO SCH (09:00)
[2018-09-25] MEDS: ASCORBIC ACID 500 MG TAB PO SCH ×2 (09:00→17:00)
[2018-09-25] MEDS: PANTOPRAZOLE 40 MG 10ML VIAL IV SCH ×2 (09:00→17:00)
[2018-09-25] MEDS ORDERED: POTASSIUM CHLORIDE 20 MEQ TAB CR PO NR (09:50)
[2018-09-25] MEDS ORDERED: DEXMEDETOMIDINE HCL 200 MCG in SODIUM CHLORIDE 0.9% 50ML 48 ML IV PRN (11:45)
--- NOTE | 2018-09-25 13:59 | Progress Note ---
DATE: 09/25/2018 SUBJECTIVE: The Levophed was weaned down to 5 mcg earlier today. He was switched from an assist-control mode of ventilation to pressure support of 10 with CPAP of 5. He is tolerating well at this time. His Versed drip was stopped. He was switched to Precedex. IV Lasix was started by Nephrology because of his fluid overload. PHYSICAL EXAMINATION: VITAL SIGNS: The blood pressure is 105/60 and the pulse is 60 to 70. HEENT: No facial swelling or erythema. There is no oral endotracheal tube in place. There is a right subclavian line. The site looks clean. There is no drainage. CARDIAC: Reveals regular rate and rhythm with normal S1, S2. LUNGS: Auscultation of lungs shows decreased breath sounds at the bases. There is wheezing. ABDOMEN: Soft, nontender. There is no rebound or guarding. EXTREMITIES: 2+ leg edema. LABORATORY DATA: The white blood cell count is 9.3 and hemoglobin is 8.4. The platelet count is 124. BUN to creatinine ratio is 69 to 1.1 and the potassium is 3.4. The other electrolytes are within normal limits. RADIOGRAPHIC DATA: Chest x-ray shows cardiomegaly and bilateral airspace opacities. There are small pleural effusions. IMPRESSION: 1. Acute on chronic respiratory failure. 2. Acute myocardial infarction with cardiogenic shock. 3. Pneumonia with severe sepsis, present on admission. 4. Acute kidney injury. 5. Thrombocytopenia. 6. Liver disease. PLAN: 1. Continue spontaneous breathing trial and repeat ABG. 2. Continue enteral feedings. 3. Continue antibiotics. 4. Wean Levophed as tolerated. 5. Precedex. 6. Case discussed with family, and nursing. 7. Greater than 35 minutes in direct critical care time. Bronson Jameson MD [facility] /[id number]
[2018-09-25] MEDS: FUROSEMIDE INJ 10 MG/ML 4 ML VIAL IV SCH ×2 (14:00→22:04)
--- NOTE | 2018-09-25 14:04 | Progress Note ---
DATE: 09/25/2018 Nephrology Progress Note SUBJECTIVE: The patient is still intubated, in the process of being weaned and possibly getting extubated if he does better. Still has some edema on examination. Urine output is okay. Discussed plan of care with the at bedside as well. OBJECTIVE: VITAL SIGNS: Temperature is 98.7, pulse 64, respiratory rate is 18, he is still on mechanical ventilator, blood pressure last recorded was that could be possibly wrong and his blood pressure continues to fluctuate up and down. He is in the process of being weaned off pressors as well. GENERAL: Intubated and sedated. HEENT: Head is normocephalic and atraumatic. Eyes; pupils are equal, round, and reactive to light bilaterally. Extraocular movements are intact bilaterally. NECK: Supple. Good range of motion. PULMONARY: Intubated and sedated. Clear to auscultation bilaterally. No wheezing, no rales, no rhonchi, no crackles appreciated. CARDIOVASCULAR: Positive S1, S2. No murmurs, rubs, or gallops appreciated. ABDOMEN: Soft, nondistended, and nontender to palpation. Bowel sounds present. MUSCULOSKELETAL: Unable to assess, currently sedated. NEUROLOGIC: Unable to assess, currently sedated. SKIN: Intact. Warm to touch. Good cap refill. PSYCHIATRIC: Intubated and sedated. EXTREMITIES: He has 2+ pedal edema in bilateral lower extremities. LAB FINDINGS: Show white count 9.3, hemoglobin 8.4, hematocrit 26.8, and platelets of 124. Chemistry; sodium 140, potassium 3.4, chloride 107, bicarb 27, anion gap of 9.4, BUN 69, creatinine is 1.1, glucose 190, magnesium 1.6. LFTs showed total bilirubin was 1, AST 107, ALT 46. His BNP was 2272. Urinalysis negative. IMPRESSION: 1. Acute kidney injury secondary to hypotension from underlying contrast as well as possibly ATN. 2. [id number] myocardial infarction, status post left heart catheterization with stent placement. 3. Septic shock, improving. 4. Hematuria. 5. Lower extremity edema. PLAN: At this time, his creatinine is back to normal baseline. Replace potassium 40 mEq p.o. per NG tube b.i.d. x2 doses. Give Lasix 40 mg IV q.8. Monitor blood pressures closely. Replace electrolytes. Get a.m. labs. His BUN is slightly elevated from underlying tube feeds, but his rest of electrolytes including his creatinine is stable. MD LORENA Yeager/[facility] /[id number]
[2018-09-25] MEDS ORDERED: DOBUtamine HCL 500MG/D5W 250ML 250 ML IV PRN (15:30)
[2018-09-25] MEDS ORDERED: SODIUM CHLORIDE 0.9% 250ML 250 ML ONE (15:38)
[2018-09-25] MEDS: NOREPINEPHRINE INJ 4MG/4ML 8 MG in DEXTROSE 5% 250ML 250 ML IV SCH ×4 (16:03→23:23)
[2018-09-25] MEDS: POTASSIUM CHLORIDE 20MEQ/15ML UDC NG SCH (17:00)
[2018-09-25] MEDS: OYST-CAL-D 500MG TABLET PO SCH (17:00)
[2018-09-25] MEDS: AMIODARONE HCL 900 MG in DEXTROSE 5 % 500ML BOTTLE 500 ML IV SCH (21:00)
[2018-09-26] VITALS (45 sets, daily range): BP systolic 63–118; BP diastolic 33–56
[2018-09-26] MEDS: NOREPINEPHRINE INJ 4MG/4ML 8 MG in DEXTROSE 5% 250ML 250 ML IV SCH ×3 (00:10→04:45)
[2018-09-26] MEDS ORDERED: DEXMEDETOMIDINE 200MCG/NS 50ML 50 ML IV ONE (03:28)
[2018-09-26] MEDS: DEXMEDETOMIDINE HCL 200 MCG in SODIUM CHLORIDE 0.9% 50ML 48 ML IV PRN ×2 (03:30→03:45)
[2018-09-26 04:37] LABS: BASOPHILS # (AUTO) 0.1 (0.0-0.1); EOSINOPHILS # (AUTO) 0.5 (0.0-0.4); EOSINOPHILS % 7.3 % (0.0-6.0); HEMATOCRIT 28.2 % (38.2-49.6); HEMOGLOBIN 8.9 g/dL (14.0-18.0); LYMPHOCYTES # (AUTO) 1.4 (1.0-3.2); LYMPHOCYTES % 19.7 % (18.0-39.1); MEAN CORPUSCULAR HEMOGLOBIN 30.4 pg (28-32); MEAN CORPUSCULAR HGB CONC 31.6 g/dL (31-35); MEAN CORPUSCULAR VOLUME 96.2 fL (81-99); MONOCYTES # (AUTO) 0.9 (0.2-0.8); MONOCYTES % 12.8 % (4.4-11.3); NEUTROPHILS % 58.8 % (38.7-80.0); PLATELET COUNT 133 x10e3/uL (140-360); RED BLOOD COUNT 2.93 x10e6/uL (4.3-5.7); RED CELL DISTRIBUTION WIDTH 17.6 % (11.7-14.4)
[2018-09-26 04:59] LABS: ANION GAP 9.9 mmol/L (8-16); BLOOD UREA NITROGEN 60 mg/dL (7-26); BUN/CREATININE RATIO 59 (6-25); CALCIUM 8.3 mg/dL (8.4-10.2); CARBON DIOXIDE 28 mmol/L (22-29); CHLORIDE 110 mmol/L (98-107); CREATININE, SERUM 1.02 mg/dL (0.72-1.25); EST GLOMERULAR FILTRATION RATE > 60 ML/MIN (60-); GLUCOSE 145 mg/dL (74-118); MAGNESIUM 1.8 MG/DL (1.3-2.1); POTASSIUM 3.9 mmol/L (3.5-5.1); SODIUM 144 mmol/L (136-145)
[2018-09-26] MEDS: INSULIN LISPRO 100 UNIT/1 ML 3ML VIAL SQ SCH ×4 (06:00→23:51)
--- NOTE | 2018-09-26 06:23 | Diagnostic Imaging Report ---
EXAMINATION: CHEST SINGLE (PORTABLE) INDICATION: ^Resp Failure ^[id number] ^[id number] COMPARISON: 09/25/2018 FINDINGS: AP view TUBES and LINES: Stable endotracheal and NG/OG tubes. Right subclavian central venous catheter with tip overlying the high SVC is unchanged. LUNGS: Lungs are well inflated. Worsening bilateral pulmonary edema. Bibasilar atelectasis. PLEURA: Small bilateral pleural effusions. No pneumothorax. HEART AND MEDIASTINUM: Stable moderate enlargement of the cardiac silhouette. The pulmonary arteries are enlarged consistent with pulmonary hypertension. BONES AND SOFT TISSUES: No acute osseous lesion. Soft tissues are unremarkable. UPPER ABDOMEN: No free air under the diaphragm. IMPRESSION: Worsening bilateral pulmonary edema. Stable small bilateral pleural effusions. Signed by: Dr. Pao Lynch M.D. on 09/26/2018 6:20 AM
[2018-09-26] MEDS: FUROSEMIDE INJ 10 MG/ML 4 ML VIAL IV SCH (06:52)
[2018-09-26] MEDS: MEROPENEM 1GM 100 ML IV SCH ×3 (06:53→22:07)
[2018-09-26 08:18] LABS: ALANINE AMINOTRANSFERASE 29 IU/L (0-55); ALBUMIN 2.2 g/dL (3.5-5.0); ALKALINE PHOSPHATASE 49 IU/L (40-150)
[2018-09-26] MEDS: POTASSIUM CHLORIDE 20MEQ/15ML UDC NG SCH (09:13)
[2018-09-26] MEDS: PANTOPRAZOLE 40 MG 10ML VIAL IV SCH ×2 (09:13→17:12)
[2018-09-26] MEDS: ASCORBIC ACID 500 MG TAB PO SCH ×2 (09:14→17:12)
[2018-09-26] MEDS: CLOPIDOGREL BISULFATE 75 MG TAB PO SCH (09:14)
[2018-09-26] MEDS: OYST-CAL-D 500MG TABLET PO SCH ×2 (09:14→17:12)
[2018-09-26 10:49] LABS: ABG HCO3 29 mmol/L (23-28); ABG PCO2 42 mmHg (41-51); ABG PH 7.45 (7.31-7.41); ABG PO2 156 mmHg (80-105)
--- NOTE | 2018-09-26 11:21 | Progress Note ---
DATE: 09/26/2018 GI Progress Report SUBJECTIVE: The patient continues to be intubated on respiratory support, weaned off sedation. He is on weaning trial. No bowel movement reported today. NG tube feeding has been stopped temporarily. REVIEW OF SYSTEMS: Unobtainable. MEDICATIONS: Reviewed as per MAR, he is getting meropenem, IV pantoprazole, clopidogrel, along with other medication. PHYSICAL EXAMINATION: VITAL SIGNS: Temperature 98.2, pulse 60, respiration 18, blood pressure 101/46, oxygen saturation 100% on room air. GENERAL: Intubated on respiratory support. HEENT: Eyes open, minimally follows verbal commands. Oral mucosa is moist. Anicteric sclerae. NG tube is in place. ABDOMEN: Soft, protuberant belly, nondistended, nontender. No mass or hernia. Positive bowel sound. LABORATORY DATA: Hemoglobin 8.9, it was 8.4 yesterday. ASSESSMENT: 1. Chest x-ray performed today showed worsening bilateral pulmonary edema. 2. Stable small bilateral pleural effusion, so melena resolved. Hemoglobin remained stable. PLAN: Continue PPI IV twice daily. Warfarin can be resumed from GI standpoint. Resume NG feeding. Rest of the care as per primary team. Nathan Patel MD [facility] /[id number]
--- NOTE | 2018-09-26 13:55 | NUR ---
ST NOTE: Pt extubated today at 1100, BSE order noted and to be completed 24-48 hours post extubation, handoff to RN.
--- NOTE | 2018-09-26 14:08 | Progress Note ---
DATE: 09/26/2018 SUBJECTIVE: The patient's Precedex was stopped yesterday because of bradycardia. His Levophed was subsequently weaned down to the 5 mcg. He was placed on spontaneous breathing trial this morning, but was sleepy and not breathing well. He was tried again on spontaneous breathing trial this afternoon and tolerated it well with respiratory rate of 20 and tidal volumes of 500 to 600 mL. PHYSICAL EXAMINATION: VITAL SIGNS: The patient is afebrile. HEENT: Shows no facial swelling or erythema. He has a nasogastric tube in place. He has an oral endotracheal tube. He has a subclavian line on the right side. CARDIAC: Reveals regular rate and rhythm with normal S1 and S2. There are no murmurs or rubs. LUNGS: Auscultation of lungs reveals clear breath sounds bilaterally. There are some crackles at the bases. ABDOMEN: Soft, nontender. There is no rebound or guarding. EXTREMITIES: Showed no leg edema or calf tenderness. There is no cyanosis or clubbing. SKIN: Shows no rashes. NEUROLOGIC: Shows weakness, but no focal abnormalities. LABORATORY DATA: White blood cell count is 6.8 and hemoglobin is 8.9. The platelet count is 133. The BUN to creatinine ratio is normal. The other electrolytes are within normal limits. IMPRESSION: 1. Myocardial infarction, requiring a PTCA and stent placement. 2. Cardiogenic shock. 3. Pneumonia with septic shock, present on admission. 4. Acute respiratory failure. 5. Acute kidney injury. 6. Coagulopathy. PLAN: 1. Proceed with extubation and use BiPAP S/T as needed. 2. Wean Levophed. 3. Continue current antibiotics. 4. Continue IV diuretics and hold additional fluids. 5. Continue to monitor creatinine. 6. Repeat chest x-ray in a.m. 7. Case discussed with Nursing, Respiratory, Family and Cardiology. Greater than 35 minutes in direct critical care time. Bronson Jameson MD [facility] /[id number]
--- NOTE | 2018-09-26 15:30 | NUR ---
Nutrition Intervention Note RD Recommendation(s) for Physician: - If PO is not feasible in 24hr (NPO day 5), rec to initiate continuous TF with Glucerna 1.5 @10mL/hr, advance as tolerated, to goal rate of 50mL/hr (1800kcal, 99g protein, 911mL water) - Rec adding 1 pkt beneprotein TID (18g protein) to better meets his protein need -50mL water flushes q 4hr; additional water per MD -Check labs, GI tolerance, and weight - When PO is feasible, rec [id number] diet; texture per TRIMMING PRESS OPERATOR Plan of Care: RD following, monitoring for tolerance and adequacy, TF rec Nutrition reason for involvement: Follow up RD Assessment 09/26: Pt was discussed during AM rounds. Levophed has weaned down to 5mcg/kg per minute. Pt was preparing for extubation. TRIMMING PRESS OPERATOR has been consulted for bedside swallow once extubated. NPO x 5 days. Will continue to monitor and follow. 09/23: 77yo M, who was admitted for AMS and hypotension. Pt was discussed during AM rounds. Pt went for heart cath and stent placement yesterday. Upped endoscopy showed no active bleeding but pt had coffee ground drainage from NGT. Pt remains at Levophed at 13 mcg/kg per minute. He is off vasopressin. CT abd/pel on 09/22 showed PNA, cirrhosis, and cholelithiasis. Negative blood culture. Reviewed medical record from his recent admission. Will continue to monitor and follow. Principal Problems/Diagnoses: 1. Pneumonia with severe sepsis, present on admission. 2. Myocardial infarction with elevated troponins. 3. Gastrointestinal hemorrhage with acute blood loss. 4. Anemia secondary to acute blood loss. 5. Acute respiratory failure. 6. Thrombocytopenia. PMH: DM, HTN, HLD GI: abdomen soft, non-tender, round Skin: no pressure wound noted Labs: (09/26) BUN 60 H, Glucose 145 174 H, Ca 8.3 L (09/23) BUN 65 H, Creatinine 1.45 H, Glucose 347 H, Ca 7.9 L, Mg 1.2 L, AST 206 H Meds: oscal D, plavix, vitamin C, protonix, norepinephrine Ht: 71in (Obtained from last visit 09/14) Wt: 277lb (Obtained from last visit 09/14) ; 320lb (09/23); 317.31lb (09/26) BMI: 38.6kg/m2 IBW: 172lb Malnutrition Evaluation (09/23/2018) The patient does not meet criteria for a specified degree of malnutrition at this time. Will re-evaluate at follow-up as appropriate. Nutrition Prescription (Diet Order): NPO Estimated Nutritional Needs: Calories: 1560-1950kcal (20-25kcal/kg/d) Weight used: IBW Protein: 117 195g (1.5-2.5) Weight used: IBW Diet Adequacy: Not meeting calorie needs, Not meeting protein needs Diet Education Needs Assessment: Diet education indicated, but patient not appropriate for education at this time. Nutrition Care Level: mod Nutrition Diagnosis: Inadequate oral intake related to current medical status as evidenced by pt requiring EN as main source of nutrition. Goal: Patient will meet 75-100% of estimated needs by follow up Progress: N/A Interventions: Composition, Rate, Route, IVF, Prescription medications Monitoring/Evaluation: Total energy intake, Total protein intake, Formula/Solution, IVF, Weight change, Labs, Gastric tolerance Signed: Dianna Berrios, MS, RD, LD
--- NOTE | 2018-09-26 18:36 | NUR ---
PATIENT IS SEEN AND EXAMIND OFF VENT MET W ITH FAMILY agree with plan
--- NOTE | 2018-09-26 19:00 | NUR ---
Report received. Assumed care. Assessment done. See interventions. O2 per NC @ 2L. Sats 100%. IV Levophed @ 1mcg/min.
[2018-09-27] VITALS (25 sets, daily range): BP systolic 94–120; BP diastolic 36–62
[2018-09-27 04:25] LABS: BASOPHILS % 0.8 % (0.0-1.0); EOSINOPHILS # (AUTO) 0.4 (0.0-0.4); EOSINOPHILS % 8.8 % (0.0-6.0); HEMATOCRIT 29.8 % (38.2-49.6); HEMOGLOBIN 9.3 g/dL (14.0-18.0); LYMPHOCYTES % 20.7 % (18.0-39.1); MEAN CORPUSCULAR HEMOGLOBIN 30.5 pg (28-32); MEAN CORPUSCULAR HGB CONC 31.2 g/dL (31-35); MEAN CORPUSCULAR VOLUME 97.7 fL (81-99); MONOCYTES # (AUTO) 0.8 (0.2-0.8); MONOCYTES % 16.9 % (4.4-11.3); NEUTROPHILS # (AUTO) 2.6 (2.1-6.9); NEUTROPHILS % 52.2 % (38.7-80.0); PLATELET COUNT 139 x10e3/uL (140-360); RED BLOOD COUNT 3.05 x10e6/uL (4.3-5.7); RED CELL DISTRIBUTION WIDTH 17.1 % (11.7-14.4)
[2018-09-27 04:46] LABS: BLOOD UREA NITROGEN 42 mg/dL (7-26); BUN/CREATININE RATIO 50 (6-25); CALCIUM 8.8 mg/dL (8.4-10.2); CARBON DIOXIDE 28 mmol/L (22-29); CHLORIDE 114 mmol/L (98-107); CREATININE, SERUM 0.84 mg/dL (0.72-1.25); EST GLOMERULAR FILTRATION RATE > 60 ML/MIN (60-); GLUCOSE 110 mg/dL (74-118); SODIUM 151 mmol/L (136-145)
[2018-09-27] MEDS: INSULIN LISPRO 100 UNIT/1 ML 3ML VIAL SQ SCH ×3 (05:45→17:48)
[2018-09-27] MEDS: MEROPENEM 1GM 100 ML IV SCH ×3 (05:45→22:03)
[2018-09-27] MEDS: NOREPINEPHRINE INJ 4MG/4ML 8 MG in DEXTROSE 5% 250ML 250 ML IV SCH (05:45)
--- NOTE | 2018-09-27 06:47 | Diagnostic Imaging Report ---
EXAMINATION: CHEST SINGLE (PORTABLE) INDICATION: ^Pulmonary Edema ^[id number] ^0500 COMPARISON: 09/26/2018 FINDINGS: AP view TUBES and LINES: Nasogastric tube is visualized, however the tip cannot be followed past mid esophagus. Endotracheal tube is not visualized on current exam. Stable right PICC. LUNGS: Patient's chin obscures apices. Lungs are well inflated. Pulmonary vascular congestion on mild interstitial edema, improved from prior exam. PLEURA: No pneumothorax. Small left pleural effusion. HEART AND MEDIASTINUM: The cardiomediastinal silhouette is enlarged. BONES AND SOFT TISSUES: No acute osseous lesion. Soft tissues are unremarkable. UPPER ABDOMEN: No free air under the diaphragm. IMPRESSION: Pulmonary vascular congestion, mild interstitial edema, and small left pleural effusion, decreased when compared to prior x-ray. Persistent enlarged cardiomediastinal silhouette. Signed by: Dr. Alan Evangelista MD on 09/27/2018 6:44 AM
[2018-09-27] MEDS: ASCORBIC ACID 500 MG TAB PO SCH ×2 (08:38→17:28)
[2018-09-27] MEDS: CLOPIDOGREL BISULFATE 75 MG TAB PO SCH (08:38)
[2018-09-27] MEDS: PANTOPRAZOLE 40 MG 10ML VIAL IV SCH ×2 (08:38→17:28)
[2018-09-27] MEDS: OYST-CAL-D 500MG TABLET PO SCH ×2 (08:38→17:28)
[2018-09-27] MEDS ORDERED: DEXTROSE 5%/0.45% SOD CHL 1,000 ML IV ONE (10:30)
[2018-09-27 11:05] LABS: INR 1.21; PROTHROMBIN TIME 15.9 seconds (11.9-14.5)
--- NOTE | 2018-09-27 12:11 | NUR ---
SPOKE TO DR.D POLLARD MADE AWARE OF BLOOD IN URINE AND COAG RESULTS NO FURTHER ORDERS RECEIVED AT THIS TIME
[2018-09-27 14:33] LABS: BILIRUBIN,URINE NEGATIVE (NEGATIVE); CLARITY,URINE TURBID (CLEAR); COLOR,URINE RED (YELLOW); KETONES,URINE 1+ (NEGATIVE); LEUKOCYTE ESTERASE ,URINE SMALL (NEGATIVE); NITRITE,URINE POSITIVE (NEGATIVE); URINE UROBILINOGEN 4 mg/dL (0.2 - 1)
[2018-09-27 14:34] LABS: PROTEIN,URINE DIPSTICK 3+ (NEGATIVE)
[2018-09-27 14:52] LABS: BACTERIA,URINE MANY /HPF; RBC,URINE 21-50 /HPF (0-5)
--- NOTE | 2018-09-27 14:53 | Progress Note ---
DATE: 09/27/2018 Pulmonary Critical Care Progress Note SUBJECTIVE: The patient was extubated yesterday. He is weaned off pressors. He is awaiting speech pathology evaluation. PHYSICAL EXAMINATION: VITAL SIGNS: The patient is afebrile. Blood pressure is 103/54 and saturation is 92% on 2 liters. HEENT: No facial swelling or erythema. LYMPHATIC: No submandibular, cervical, or supraclavicular adenopathy. CARDIAC: Regular rate and rhythm with normal S1, S2. There are no murmurs or rubs. LUNGS: Auscultation of lungs shows decreased breath sounds at the bases. There is no wheezing. ABDOMEN: Soft, nontender. There is no rebound or guarding. EXTREMITIES: No leg edema or calf tenderness. IMPRESSION: 1. Myocardial infarction requiring PTCA and stent placement. 2. Cardiogenic shock. 3. Pneumonia with septic shock present on admission. 4. Acute kidney injury. 5. Acute respiratory failure. 6. Congestive hepatic disease related to heart failure. PLAN: 1. Continue current antibiotics. 2. Oxygen during the day and BiPAP at night. 3. Continue to monitor creatinine. 4. Await speech therapy evaluation. Bronson Jameson MD [facility] /[id number]
--- NOTE | 2018-09-27 19:30 | Progress Note ---
DATE: 09/27/2018 GI Progress Report SUBJECTIVE: The patient is extubated. Tolerating NG tube feeding. No bowel movement so far. REVIEW OF SYSTEMS: GENERAL: No fever or chills. Feeling weak, lethargic, and drowsy. CVS: No chest pain or palpitations. RESPIRATORY: No cough or expectoration. MEDICATIONS: Reviewed the MAR. He is on Protonix 40 mg IV twice daily, calcium carbonate 500 mg twice daily, vitamin C 500 mg twice daily, meropenem 1 g q.8 hours, clopidogrel 75 mg daily, insulin lispro, and dobutamine. PHYSICAL EXAMINATION: VITAL SIGNS: Temperature 97.8, pulse 84, respirations 21, blood pressure 107/59, and oxygen saturation 100% on 2 L of nasal cannula. GENERAL: Not in any acute distress. HEENT: Oral mucosa is moist. Anicteric sclera. NG tube is in place. ABDOMEN: Soft, nondistended, and nontender. No mass or hernia. Positive bowel sounds. LABORATORY DATA: Hemoglobin is 9.3, it was 8.9 yesterday. Sodium 151, potassium 4.0, chloride 114, bicarb 28, BUN 42, and creatinine 0.84. Stool C diff toxin is negative. IMAGING: Chest x-ray; pulmonary vascular congestion, mild interstitial edema and small left pleural effusion, decreased when compared to prior x-ray. Persistent enlarged cardiomediastinal silhouette. IMPRESSION: No more GI bleeding. Hemoglobin is stable. Warfarin can be resumed. PLAN: Continue PPI. Rest of the care as per primary team. Nathan Patel MD [facility] /[id number]
[2018-09-27] MEDS: ACETAMINOPHEN/CODEINE 300MG - 30MG TAB PO PRN (22:04)
[2018-09-28] VITALS (24 sets, daily range): BP systolic 94–114; BP diastolic 40–58
[2018-09-28] MEDS: INSULIN LISPRO 100 UNIT/1 ML 3ML VIAL SQ SCH ×5 (01:59→23:49)
[2018-09-28 05:06] LABS: BASOPHILS # (AUTO) 0.1 (0.0-0.1); BASOPHILS % 1.3 % (0.0-1.0); EOSINOPHILS # (AUTO) 0.4 (0.0-0.4); EOSINOPHILS % 8.8 % (0.0-6.0); HEMATOCRIT 29.8 % (38.2-49.6); HEMOGLOBIN 8.8 g/dL (14.0-18.0); LYMPHOCYTES # (AUTO) 0.9 (1.0-3.2); LYMPHOCYTES % 22.1 % (18.0-39.1); MEAN CORPUSCULAR HEMOGLOBIN 29.8 pg (28-32); MEAN CORPUSCULAR HGB CONC 29.5 g/dL (31-35); MONOCYTES # (AUTO) 0.7 (0.2-0.8); MONOCYTES % 17.8 % (4.4-11.3); NEUTROPHILS % 49.5 % (38.7-80.0); PLATELET COUNT 136 x10e3/uL (140-360); RED BLOOD COUNT 2.95 x10e6/uL (4.3-5.7); RED CELL DISTRIBUTION WIDTH 16.9 % (11.7-14.4)
[2018-09-28] MEDS: MEROPENEM 1GM 100 ML IV SCH ×3 (05:25→21:47)
[2018-09-28 05:34] LABS: ALANINE AMINOTRANSFERASE 26 IU/L (0-55); ALBUMIN 2.3 g/dL (3.5-5.0); ALBUMIN/GLOBULIN RATIO 0.7 (0.8-2.0); ALKALINE PHOSPHATASE 57 IU/L (40-150); BLOOD UREA NITROGEN 27 mg/dL (7-26); BUN/CREATININE RATIO 36 (6-25); CALCIUM 8.9 mg/dL (8.4-10.2); CARBON DIOXIDE 30 mmol/L (22-29); CHLORIDE 113 mmol/L (98-107); CREATININE, SERUM 0.76 mg/dL (0.72-1.25); EST GLOMERULAR FILTRATION RATE > 60 ML/MIN (60-); GLUCOSE 109 mg/dL (74-118); SODIUM 148 mmol/L (136-145)
[2018-09-28] MEDS: PANTOPRAZOLE 40 MG 10ML VIAL IV SCH ×2 (08:01→16:31)
[2018-09-28] MEDS: NOREPINEPHRINE INJ 4MG/4ML 8 MG in DEXTROSE 5% 250ML 250 ML IV SCH (08:01)
[2018-09-28] MEDS: CLOPIDOGREL BISULFATE 75 MG TAB PO SCH (08:02)
[2018-09-28] MEDS: OYST-CAL-D 500MG TABLET PO SCH ×2 (08:02→14:40)
[2018-09-28] MEDS: ASCORBIC ACID 500 MG TAB PO SCH ×2 (08:02→14:40)
[2018-09-28] MEDS: ACETAMINOPHEN/CODEINE 300MG - 30MG TAB PO PRN (08:04)
--- NOTE | 2018-09-28 14:05 | NUR ---
WOUND CARE PUP SCREEN Jose Armando Score: 11 PUP: Strict LOS: 6 days Age: 77 Alternating Pressure Air Mattress to Current Weight of 313 lbs. HOB < 30 Degrees Patient Position: Right PATIENT VISIT / SKIN CHECK: Right Heel DTI. Heelmedix Boots Placed - Patient complains of discomfort of right heel. Presents with purpled area 1x1 cm, non-blanchable. RECOMMENDATION: - Continue Moderate PUP - Bilateral Heel Protectors / Offload Heels with Pillows While in Bed - Left Heel- Venelex q12h & LOTA. Addendum: 09/28/18 at 1407 by Rojas Grimm RN Amended: Links added. Addendum: 09/28/18 at 1411 by Rojas Grimm RN RECOMMENDATION: CORRECTION - RIGHT HEEL- Venelex q12h & LOTA.
[2018-09-28] MEDS: BALSAM PERU/CASTOR OIL 60 GM OINT...G. TP SCH (14:22)
--- NOTE | 2018-09-28 16:15 | Progress Note ---
DATE: 09/28/2018 Pulmonary Progress Note SUBJECTIVE: The patient is more alert today. He was able to walk with some assistance. He is still receiving enteral feedings. PHYSICAL EXAMINATION: VITAL SIGNS: Blood pressure is 113/53 and the saturation is 100% on 2 L. Pulse is 89. HEENT: Shows no facial swelling or erythema. There is no nasogastric tube in place. CARDIAC: Reveals a regular rate and rhythm with normal S1 and S2. LUNGS: Auscultation of lungs reveals a few crackles at the bases. There is no wheezing. ABDOMEN: Soft and nontender. There is no rebound or guarding. EXTREMITIES: Show no leg edema or calf tenderness. There is no cyanosis or clubbing. SKIN: Shows no rashes. NEUROLOGICAL: Shows no focal abnormalities. LABORATORY DATA: The sodium is 148. The other electrolytes are within normal limits. Total bilirubin is 1.7. Hemoglobin is 8.8, and platelet count is 136. IMPRESSION: 1. Myocardial infarction requiring percutaneous transluminal coronary angioplasty. 2. Chronic systolic congestive heart failure. 3. Pneumonia with septic shock, present on admission. 4. Acute kidney injury. 5. Congestive hepatic disease related to heart failure. PLAN: 1. Continue enteral feedings. Modified barium swallow is scheduled for tomorrow. 2. Oxygen during the day and BiPAP at night. 3. Continue current antibiotics. 4. Continue to monitor liver tests as well as electrolytes and blood counts. 5. Physical therapy. 6. Case discussed with the patient, and nursing staff. Bronson Jameson MD [facility] /[id number]
--- NOTE | 2018-09-28 19:40 | Progress Note ---
DATE: 09/28/2018 GI Progress Report SUBJECTIVE: The patient is tolerating NG tube feeding. He has not had any bowel movement since 09/24/2018. He reports no abdominal pain. REVIEW OF SYSTEMS: GENERAL: Weak and lethargic. CVS: No chest pain or palpitations. RESPIRATORY: No cough or expectoration. MEDICATIONS: Reviewed as per MAR. The patient is getting pantoprazole 40 mg IV twice daily along with other medications. He is also getting meropenem. PHYSICAL EXAMINATION: VITAL SIGNS: Temperature 97.9, pulse 82, respiration 24, blood pressure 114/54, oxygen saturation 100% on 2 L of nasal cannula. GENERAL: Alert, awake, much more coherent today. Oral mucosa is moist. HEENT: NG tube is in place. ABDOMEN: Soft, protuberant belly, nondistended, nontender. No palpable mass or hernia. Positive bowel sounds. LABORATORY DATA: WBC 3.99, hemoglobin 8.8 today, it was 9.3 yesterday, hematocrit 29.8, MCV 101.0, platelet count 136. Sodium 148, potassium 4.0, chloride 113, bicarb 30, BUN 27, creatinine 0.76. Liver enzymes showed a total bilirubin of 1.7, AST 49, ALT 26, alkaline phosphatase 57. IMPRESSION: 1. Slight drop in hemoglobin from 9.3 to 8.8. No gross GI bleeding. 2. Constipation. 3. 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 PLAN: Bowel regimen for constipation. We will put him on MiraLAX. Refrain from daily blood drop. Reiterated that warfarin can be resumed. No restriction from GI standpoint. Rest of the care as per primary team. Nathan Patel MD [facility] /[id number]
[2018-09-28] MEDS: POLYETHYLENE GLYCOL 3350 17 GM PACK PO SCH (21:49)
[2018-09-29] VITALS (22 sets, daily range): BP systolic 91–146; BP diastolic 42–70
--- NOTE | 2018-09-29 01:00 | NUR ---
Patient refused to turn. Patient educated on importance of turning/repositioning to prevent ulcers/relieve pressure. Patient verbalized understanding.
[2018-09-29 04:52] LABS: BASOPHILS # (AUTO) 0.1 (0.0-0.1); BASOPHILS % 1.1 % (0.0-1.0); EOSINOPHILS # (AUTO) 0.3 (0.0-0.4); EOSINOPHILS % 7.1 % (0.0-6.0); HEMATOCRIT 28.9 % (38.2-49.6); HEMOGLOBIN 8.4 g/dL (14.0-18.0); LYMPHOCYTES # (AUTO) 1.1 (1.0-3.2); LYMPHOCYTES % 23.7 % (18.0-39.1); MEAN CORPUSCULAR HEMOGLOBIN 29.6 pg (28-32); MEAN CORPUSCULAR HGB CONC 29.1 g/dL (31-35); MEAN CORPUSCULAR VOLUME 101.8 fL (81-99); MONOCYTES # (AUTO) 0.8 (0.2-0.8); MONOCYTES % 16.6 % (4.4-11.3); NEUTROPHILS # (AUTO) 2.4 (2.1-6.9); NEUTROPHILS % 51.1 % (38.7-80.0); PLATELET COUNT 141 x10e3/uL (140-360); RED BLOOD COUNT 2.84 x10e6/uL (4.3-5.7); RED CELL DISTRIBUTION WIDTH 16.5 % (11.7-14.4)
[2018-09-29] MEDS ORDERED: SODIUM CHLORIDE 0.9% 250ML 250 ML ONE (04:59)
[2018-09-29 05:13] LABS: ANION GAP 9.4 mmol/L (8-16); BLOOD UREA NITROGEN 24 mg/dL (7-26); BUN/CREATININE RATIO 30 (6-25); CALCIUM 8.7 mg/dL (8.4-10.2); CARBON DIOXIDE 31 mmol/L (22-29); CHLORIDE 111 mmol/L (98-107); CREATININE, SERUM 0.81 mg/dL (0.72-1.25); EST GLOMERULAR FILTRATION RATE > 60 ML/MIN (60-); GLUCOSE 150 mg/dL (74-118); POTASSIUM 4.4 mmol/L (3.5-5.1); SODIUM 147 mmol/L (136-145)
[2018-09-29] MEDS: INSULIN LISPRO 100 UNIT/1 ML 3ML VIAL SQ SCH ×3 (06:40→16:54)
[2018-09-29] MEDS: BALSAM PERU/CASTOR OIL 60 GM OINT...G. TP SCH ×2 (06:40→14:51)
[2018-09-29] MEDS: MEROPENEM 1GM 100 ML IV SCH ×3 (06:40→21:33)
--- NOTE | 2018-09-29 06:47 | NUR ---
PICC line dressing changed using sterile technique. All lumens flushed, blood return present in all 3 lumens. Caps changed. No signs of redness or purulent drainage at insertion site. Pt tolerated dressing change well.
--- NOTE | 2018-09-29 08:19 | Diagnostic Imaging Report ---
EXAMINATION: CHEST SINGLE (PORTABLE) INDICATION: Pulmonary edema. COMPARISON: Chest radiograph 09/27/2018 FINDINGS: AP view Somewhat limited study secondary to portable technique and soft tissue attenuation. TUBES and LINES: Nasogastric tube is visualized. The mid portion is not visualized, however the tip likely terminates in the stomach. Stable right PICC. LUNGS: Lungs are well inflated. Pulmonary vascular congestion and mild interstitial edema, increased from the prior study. Interval development of patchy bibasilar opacities. No lobar consolidation. Incidental azygous lobe. PLEURA: No pneumothorax. Small left pleural effusion. HEART AND MEDIASTINUM: The cardiomediastinal silhouette is enlarged. BONES AND SOFT TISSUES: No acute osseous abnormality. UPPER ABDOMEN: No free air under the diaphragm. IMPRESSION: Increasing mild pulmonary interstitial edema. Persistent small left pleural effusion. Interval development of patchy opacities at the lung bases, which may represent atelectasis, alveolar edema, or aspiration in the appropriate clinical setting. Signed by: Dr. Becca Herrera MD on 09/29/2018 8:16 AM
[2018-09-29] MEDS: NOREPINEPHRINE INJ 4MG/4ML 8 MG in DEXTROSE 5% 250ML 250 ML IV SCH (08:30)
[2018-09-29] MEDS: CLOPIDOGREL BISULFATE 75 MG TAB PO SCH (08:53)
[2018-09-29] MEDS: ASCORBIC ACID 500 MG TAB PO SCH ×2 (08:53→16:08)
[2018-09-29] MEDS: PANTOPRAZOLE 40 MG 10ML VIAL IV SCH ×2 (08:53→16:08)
[2018-09-29] MEDS: OYST-CAL-D 500MG TABLET PO SCH ×2 (08:53→16:08)
--- NOTE | 2018-09-29 14:04 | NUR ---
DISCUSSED IN ROUNDS IS ON MIRAPENIUM AND PT RECOMMENDS SNF. WAITING ON DOCTOR ORDERS
--- NOTE | 2018-09-29 16:18 | Progress Note ---
DATE: 09/29/2018 SUBJECTIVE: The patient has some sore throat. He is still awaiting speech therapy evaluation. He was able to stand. PHYSICAL EXAMINATION: VITAL SIGNS: The patient is afebrile. The vital signs are stable. HEENT: No facial swelling or erythema. The nasal mucosa is normal. There is a nasogastric tube in place. CARDIAC: Regular rate and rhythm with a normal S1, S2. LUNGS: Auscultation of lungs reveal decreased breath sounds at the bases. There is no wheezing. ABDOMEN: Soft, nontender. There is no rebound or guarding. EXTREMITIES: No leg edema or calf tenderness. There is no cyanosis clubbing. SKIN: No rashes. IMPRESSION: 1. Mojsr-kw-[id number] systolic congestive heart failure. 2. Cardiogenic shock. 3. Pneumonia with septic shock, present on admission. 4. Congestive hepatic disease. PLAN: 1. Continue physical therapy. 2. Continue antibiotics. 3. Complete swallowing evaluation. 4. Case discussed with family and nursing staff. Bornson Jameson MD [facility] /[id number]
--- NOTE | 2018-09-29 16:29 | Diagnostic Imaging Report ---
PROCEDURE: X-RAY MODIFIED BARIUM SWALLOW COMPARISON: None. INDICATION: Dysphagia. Radiation Details: Fluoroscopy time: 3.0 minutes Cumulative dose: 15 mGy DISCUSSION: Fluoroscopic examination was performed in conjunction with speech pathology during swallowing a variety of thin and thick liquid consistencies. Provided images demonstrate laryngeal penetration and small amount of aspiration. CONCLUSION: Modified barium swallow demonstrating laryngeal penetration and small amount of aspiration. Please refer to the speech pathology report for further details. Signed by: Dr. Becca Herrera MD on 09/29/2018 4:25 PM
--- NOTE | 2018-09-29 17:00 | NUR ---
patient requested water to clean his yanker & suction tubing with then proceeded to take a sip of water from container. patient aware of silent aspiration and risks from taking po liquid
[2018-09-30] VITALS (12 sets, daily range): BP systolic 109–132; BP diastolic 40–64
[2018-09-30 01:40] LABS: BASOPHILS # (AUTO) 0.1 (0.0-0.1); BASOPHILS % 1.3 % (0.0-1.0); EOSINOPHILS # (AUTO) 0.3 (0.0-0.4); EOSINOPHILS % 5.4 % (0.0-6.0); HEMATOCRIT 29.1 % (38.2-49.6); HEMOGLOBIN 8.9 g/dL (14.0-18.0); LYMPHOCYTES # (AUTO) 1.3 (1.0-3.2); LYMPHOCYTES % 23.5 % (18.0-39.1); MEAN CORPUSCULAR HEMOGLOBIN 30.4 pg (28-32); MEAN CORPUSCULAR HGB CONC 30.6 g/dL (31-35); MEAN CORPUSCULAR VOLUME 99.3 fL (81-99); MONOCYTES # (AUTO) 0.7 (0.2-0.8); MONOCYTES % 12.6 % (4.4-11.3); NEUTROPHILS # (AUTO) 3.1 (2.1-6.9); NEUTROPHILS % 56.8 % (38.7-80.0); PLATELET COUNT 147 x10e3/uL (140-360); RED BLOOD COUNT 2.93 x10e6/uL (4.3-5.7); RED CELL DISTRIBUTION WIDTH 16.3 % (11.7-14.4)
[2018-09-30 02:01] LABS: ANION GAP 10.4 mmol/L (8-16); BLOOD UREA NITROGEN 20 mg/dL (7-26); BUN/CREATININE RATIO 25 (6-25); CALCIUM 8.7 mg/dL (8.4-10.2); CARBON DIOXIDE 30 mmol/L (22-29); CHLORIDE 112 mmol/L (98-107); CREATININE, SERUM 0.81 mg/dL (0.72-1.25); EST GLOMERULAR FILTRATION RATE > 60 ML/MIN (60-); GLUCOSE 168 mg/dL (74-118); MAGNESIUM 1.6 MG/DL (1.3-2.1); PHOSPHORUS 2.3 MG/DL (2.3-4.7); POTASSIUM 4.4 mmol/L (3.5-5.1); SODIUM 148 mmol/L (136-145)
[2018-09-30] MEDS: BALSAM PERU/CASTOR OIL 60 GM OINT...G. TP SCH ×2 (03:23→13:35)
[2018-09-30] MEDS: MEROPENEM 1GM 100 ML IV SCH ×3 (06:16→21:55)
[2018-09-30] MEDS: INSULIN LISPRO 100 UNIT/1 ML 3ML VIAL SQ SCH ×4 (06:17→18:42)
[2018-09-30] MEDS: NOREPINEPHRINE INJ 4MG/4ML 8 MG in DEXTROSE 5% 250ML 250 ML IV SCH (08:30)
[2018-09-30] MEDS: ASCORBIC ACID 500 MG TAB PO SCH ×2 (09:46→18:41)
[2018-09-30] MEDS: POLYETHYLENE GLYCOL 3350 17 GM PACK PO SCH (09:46)
[2018-09-30] MEDS: PANTOPRAZOLE 40 MG 10ML VIAL IV SCH ×2 (09:46→18:41)
[2018-09-30] MEDS: CLOPIDOGREL BISULFATE 75 MG TAB PO SCH (09:46)
[2018-09-30] MEDS: OYST-CAL-D 500MG TABLET PO SCH ×2 (09:46→18:41)
--- NOTE | 2018-09-30 10:57 | NUR ---
Report called to KAREEM Briggs for Room 291. [address].
--- NOTE | 2018-09-30 11:40 | NUR ---
Patient received from ICU. Patient has a left nare NGT, pablo in place, right UA PICC line dry and intact. Glucerna running at 50 ml/hr. Bipap machine at bedside. Side rails up x2, bed in lowest position, and call glover within reach.
--- NOTE | 2018-09-30 14:31 | NUR ---
Nutrition Follow-up Note RD Recommendation(s) for Physician: - Rec to increase continuous TF with Glucerna 1.5 to goal rate of 50mL/hr (1800kcal, 99g protein, 911mL water) - Rec adding 1 pkt beneprotein TID (18g protein) to better meets his protein need -200mL water flushes q 4hr; additional water per MD -Check labs, GI tolerance, and weight - When PO is feasible, rec [id number] diet; texture per CURRENCY EXCHANGE SPECIALIST Plan of Care: RD following, monitoring for tolerance and adequacy, TF rec Nutrition reason for involvement: Follow up RD Assessment 09/30: Pt was moved from ICU to [facility]3. Per KAREEM Briggs, TF has been tolerated well at 40mL/hr. No GI complains reported. CURRENCY EXCHANGE SPECIALIST is following for NMES. Will continue to monitor and follow. 09/26: Pt was discussed during AM rounds. Levophed has weaned down to 5mcg/kg per minute. Pt was preparing for extubation. CURRENCY EXCHANGE SPECIALIST has been consulted for bedside swallow once extubated. NPO x 5 days. Will continue to monitor and follow. 09/23: 77yo M, who was admitted for AMS and hypotension. Pt was discussed during AM rounds. Pt went for heart cath and stent placement yesterday. Upped endoscopy showed no active bleeding but pt had coffee ground drainage from NGT. Pt remains at Levophed at 13 mcg/kg per minute. He is off vasopressin. CT abd/pel on 09/22 showed PNA, cirrhosis, and cholelithiasis. Negative blood culture. Reviewed medical record from his recent admission. Will continue to monitor and follow. Principal Problems/Diagnoses: 1. Pneumonia with severe sepsis, present on admission. 2. Myocardial infarction with elevated troponins. 3. Gastrointestinal hemorrhage with acute blood loss. 4. Anemia secondary to acute blood loss. 5. Acute respiratory failure. 6. Thrombocytopenia. PMH: DM, HTN, HLD GI: abdomen soft, non-tender, round, +NGT Skin: no pressure wound noted Labs: (09/30) Na 148 H, Glucose 146 197 H (09/26) BUN 60 H, Glucose 145 174 H, Ca 8.3 L (09/23) BUN 65 H, Creatinine 1.45 H, Glucose 347 H, Ca 7.9 L, Mg 1.2 L, AST 206 H Meds: miralax, oscal D, protonix, plavix, vitamin C, humalog Ht: 71in (Obtained from last visit 09/14) Wt: 277lb (Obtained from last visit 09/14) ; 320lb (09/23); 317.31lb (09/26); 320lb BMI: 38.6kg/m2 IBW: 172lb Malnutrition Evaluation (09/23/2018) The patient does not meet criteria for a specified degree of malnutrition at this time. Will re-evaluate at follow-up as appropriate. Nutrition Prescription (Diet Order): Glucerna 1.5 @40mL/hr Estimated Nutritional Needs: Calories: 1560-1950kcal (20-25kcal/kg/d) Weight used: IBW Protein: 117 195g (1.5-2.5) Weight used: IBW Diet Adequacy: Not meeting calorie needs, Not meeting protein needs Diet Education Needs Assessment: Diet education indicated, but patient not appropriate for education at this time. Nutrition Care Level: mod Nutrition Diagnosis: Inadequate oral intake related to current medical status as evidenced by pt requiring EN as main source of nutrition. Goal: Patient will meet 75-100% of estimated needs by follow up Progress: Progressing Interventions: Composition, Rate, Route, IVF, Prescription medications Monitoring/Evaluation: Total energy intake, Total protein intake, Formula/Solution, IVF, Weight change, Labs, Gastric tolerance Signed: Dianna Berrios, MS, RD, LD
--- NOTE | 2018-09-30 16:20 | NUR ---
ORDER RECEIVED FOR LTAC MET W THE PT AND GIRL FRIEND AT THE BEDSIDE. PROVIDED CHOICE FOR LTAC. STATES HE WOULD LIKE TO GO [facility] [address]. CHOICE LETTER WAS SIGNED FOR [facility]. MOT INITIATED. NOTIFIED LONA MONREAL
--- NOTE | 2018-09-30 18:48 | Progress Note ---
DATE: 09/30/2018 SUBJECTIVE: The patient was transferred out of the Intensive Care Unit today. He was able to walk with assistance and help from physical therapy. He still is undergoing speech therapy. PHYSICAL EXAMINATION: VITAL SIGNS: Stable. HEENT: Shows a nasogastric feeding tube. LYMPHATIC: Shows no submandibular, cervical, or supraclavicular adenopathy. CARDIAC: Reveals a regular rate and rhythm with normal S1 and S2. There are no murmurs or rubs. LUNGS: Auscultation of lungs reveals decreased breath sounds at the bases. There is no wheezing. ABDOMEN: Soft, nontender. There is no rebound or guarding. EXTREMITIES: Show no leg edema or calf tenderness. IMPRESSION: 1. Myocardial infarction. 2. Pneumonia with sepsis, present on admission. 3. Oropharyngeal dysphagia. 4. Congestive liver disease. PLAN: 1. Continue physical therapy. 2. Speech therapy. 3. Oxygen during the day and BiPAP at night. 4. Complete antibiotics. 5. Continue current cardiac regimen. 6. Arrange for transfer to [place]. Bronson Jameson MD [facility]/MILLAL /[id number]
--- NOTE | 2018-09-30 18:55 | NUR ---
Rounded with night clerk auditor nurse to do report. Patient is on o2 via NC at 2 L/min. No s/s of distress. Fine in place clean and intact. Side rails up x2, call glover within reach, and bed in lowest position.
--- NOTE | 2018-09-30 19:05 | NUR ---
Patient visited in room during nursing rounds. Patient alert and oriented x3. NG tube to left nare and receiving feeding (Glucerna at 50ml/hr). Pt tolerating feeding well. Currently NPO. Fine in place (for UR). Call glover within reach. No distress or discomfort noted. Will monitor closely.
--- NOTE | 2018-09-30 21:14 | Progress Note ---
DATE: 09/30/2018 SUBJECTIVE: Mr. Gardiner is doing better overall. NG tube in, still weak. His is at the bedside. He is still having problem with aspiration. REVIEW OF SYSTEMS: HEENT: Negative. PULMONARY: Negative. CARDIAC: Negative. PHYSICAL EXAMINATION: GENERAL: He is currently alert, oriented, does not seem to be in any acute distress. VITAL SIGNS: Stable, currently afebrile. HEENT: Normocephalic. NECK: Supple. CHEST: Few crackles at the bases. COR: S1 and S2. No murmurs. ABDOMEN: Soft. Bowel sounds present. No tenderness. EXTREMITIES: No edema. SKIN: No rash. IMPRESSION: 1. Respiratory failure, resolved. 2. Pneumonia, aspiration, on meropenem, to finish eight days. 3. Aspiration, recurrent. He currently has an NG tube. Hopefully with PT, OT, and supportive care that he will get better. 4. Status post ctu-IT-cffxayvbf myocardial infarction, status post stent placement. Cardiology is following. 5. Acute blood loss anemia secondary to gastrointestinal bleed, seem to be stable. 6. Complicated case. 7. Debility. 8. Discussed with his . Discussed with nursing team. The patient is going to an LTAC. MD ODIN Farooq/BRYANT /[id number]
--- NOTE | 2018-09-30 23:50 | NUR ---
New bag of Glucerna 1.2 earle hanged. Residual check was 30ml. Patient tolerating feeding fine. Pt denies any dyspnea or discomfort.
[2018-10-01] VITALS (8 sets, daily range): BP systolic 92–122; BP diastolic 43–62
[2018-10-01] MEDS: INSULIN LISPRO 100 UNIT/1 ML 3ML VIAL SQ SCH ×4 (00:54→18:34)
[2018-10-01] MEDS: BALSAM PERU/CASTOR OIL 60 GM OINT...G. TP SCH ×2 (02:48→14:00)
[2018-10-01 04:08] LABS: BASOPHILS # (AUTO) 0.1 (0.0-0.1); BASOPHILS % 0.9 % (0.0-1.0); EOSINOPHILS # (AUTO) 0.3 (0.0-0.4); EOSINOPHILS % 5.4 % (0.0-6.0); HEMATOCRIT 30.9 % (38.2-49.6); HEMOGLOBIN 9.2 g/dL (14.0-18.0); LYMPHOCYTES # (AUTO) 1.4 (1.0-3.2); LYMPHOCYTES % 23.7 % (18.0-39.1); MEAN CORPUSCULAR HEMOGLOBIN 29.8 pg (28-32); MEAN CORPUSCULAR HGB CONC 29.8 g/dL (31-35); MONOCYTES # (AUTO) 0.8 (0.2-0.8); MONOCYTES % 13.5 % (4.4-11.3); NEUTROPHILS # (AUTO) 3.2 (2.1-6.9); PLATELET COUNT 142 x10e3/uL (140-360); RED BLOOD COUNT 3.09 x10e6/uL (4.3-5.7); RED CELL DISTRIBUTION WIDTH 16.6 % (11.7-14.4)
[2018-10-01 04:25] LABS: ANION GAP 8.4 mmol/L (8-16); BLOOD UREA NITROGEN 17 mg/dL (7-26); BUN/CREATININE RATIO 21 (6-25); CARBON DIOXIDE 33 mmol/L (22-29); CHLORIDE 112 mmol/L (98-107); CREATININE, SERUM 0.81 mg/dL (0.72-1.25); EST GLOMERULAR FILTRATION RATE > 60 ML/MIN (60-); GLUCOSE 130 mg/dL (74-118); MAGNESIUM 1.7 MG/DL (1.3-2.1); POTASSIUM 4.4 mmol/L (3.5-5.1); SODIUM 149 mmol/L (136-145)
[2018-10-01] MEDS: MEROPENEM 1GM 100 ML IV SCH ×3 (06:28→22:25)
[2018-10-01] MEDS: METOPROLOL TARTRATE 25 MG TAB PO SCH ×2 (08:58→17:00)
[2018-10-01] MEDS: PANTOPRAZOLE 40 MG 10ML VIAL IV SCH ×2 (08:58→17:10)
[2018-10-01] MEDS: OYST-CAL-D 500MG TABLET PO SCH ×2 (08:59→17:10)
[2018-10-01] MEDS: CLOPIDOGREL BISULFATE 75 MG TAB PO SCH (08:59)
[2018-10-01] MEDS: POLYETHYLENE GLYCOL 3350 17 GM PACK PO SCH (09:00)
[2018-10-01] MEDS: ASCORBIC ACID 500 MG TAB PO SCH ×3 (09:04→17:09)
--- NOTE | 2018-10-01 11:00 | NUR ---
Fine discontinued per physician orders at this time. Pt is due to void at 1700.
--- NOTE | 2018-10-01 13:00 | NUR ---
Notified attending that pt has room at [facility] and attending states pt will discharge tomorrow.
--- NOTE | 2018-10-01 14:00 | NUR ---
Pt had voided in urinal. Pt is still having hematuria at this point. Denies any pain with voiding. Pt stools are still a bit dark. Dr. Sainz hematology here to see pt and made aware of hematuria and informed that he will have follow up labs in am. No further orders received for hematuria and dark stools. Dr. Sainz wants to make sure that he remains consult when he is transferred to [place].
--- NOTE | 2018-10-01 14:52 | Progress Note ---
DATE: 10/01/2018 SUBJECTIVE: The patient walked today with physical therapy. His Fine catheter was removed. He is not complaining of fever. He has no chest pain. OBJECTIVE: VITAL SIGNS: The patient is afebrile. The vital signs are stable. HEENT: Shows no facial swelling or erythema. CARDIAC: Reveals regular rate and rhythm with normal S1 and S2. There are no murmurs or rubs. LUNGS: Auscultation of lungs reveals clear breath sounds bilaterally. There is no wheezing. ABDOMEN: Soft, nontender. There is no rebound or guarding. EXTREMITIES: Show no leg edema or calf tenderness. There is no cyanosis or clubbing. SKIN: Shows no rashes. NEUROLOGIC: Shows no focal abnormalities. IMPRESSION: 1. Acute on chronic systolic congestive heart failure. 2. Myocardial infarction. 3. Pneumonia with severe sepsis, present on admission. 4. Congestive liver disease. 5. Metabolic encephalopathy. PLAN: 1. Continue physical therapy. 2. Complete antibiotics. 3. Continue enteral feedings and speech therapy. 4. Tentative transfer to [place]. Bronson Jameson MD LM/BRYANT /[id number]
--- NOTE | 2018-10-01 15:57 | Progress Note ---
DATE: 10/01/2018 Nephrology Progress Note SUBJECTIVE: The patient is doing much better today with no complaints. He is in the process of going to [facility]. His sodium is elevated, seems to be dehydrated. He is n.p.o. OBJECTIVE: VITAL SIGNS: Temperature is 96.5, pulse 60, respiratory rate is 20, blood pressure is 120/56, and pulse ox is 95% on 2 liters nasal cannula. LAB FINDINGS: Show white count 5.6, hemoglobin 9.2, hematocrit is 31, and platelets of 142. Chemistry; sodium 149, potassium 4.4, chloride is 112, and bicarb is 33. His anion gap is 8, BUN 17, creatinine is 0.81, glucose is 130, and magnesium is 1.7. Microbiology cultures were negative. OBJECTIVE: GENERAL: Not in acute distress, alert and oriented x3, cooperative on examination., HEENT: Head is normocephalic and atraumatic. Eyes; pupils are equal, round, and reactive to light bilaterally. Extraocular movements are intact bilaterally. Throat, no evidence of erythema or exudates in the posterior pharynx. He has poor dentition. NECK: Supple. Good range of motion. PULMONARY: Clear to auscultation bilaterally. No wheezing, no rales, no rhonchi, and no crackles appreciated. CARDIOVASCULAR: Positive S1 and S2. No murmurs, rubs, or gallops appreciated. ABDOMEN: Soft, nondistended, and nontender to palpation. Bowel sounds present. MUSCULOSKELETAL: Strength is 5/5 throughout. No evidence of any muscle deficits on examination. No weakness appreciated. NEUROLOGICAL: Cranial nerves II through XII grossly intact. No evidence of any neurological deficits on exam. SKIN: Intact. Warm to touch. Good cap refill. PSYCHIATRIC: Normal affect and mood. EXTREMITIES: No edema. Good range of motion throughout. IMPRESSION: 1. Acute kidney injury secondary to hypotension, now resolved. 2. Hypernatremia secondary to dehydration. 3. Contraction alkalosis with metabolic alkalosis. 4. Cht-IN-okpxghyfk myocardial infarction, status post left heart catheterization with stent placed. 5. Hematuria, resolving. 6. Lower extremity edema. PLAN: At this time, creatinine is at baseline. His electrolytes are stable except for sodium is elevated. We will increase free water to 300 mL every 6 hours given 1.2 liters on a given day, hopefully this will improve the sodium level. This will also help with contraction alkalosis as well. Repeat labs in the morning. I feel like the level of the sodium and the bicarb will be much improved by tomorrow. MD LORENA Yeager/MODL /[id number]
[2018-10-01] MEDS: FUROSEMIDE 40 MG TAB PO SCH (17:10)
[2018-10-01] MEDS: FERROUS SULFATE 325 MG TAB PO SCH (17:10)
[2018-10-02] VITALS (8 sets, daily range): BP systolic 90–115; BP diastolic 42–56
[2018-10-02] MEDS: INSULIN LISPRO 100 UNIT/1 ML 3ML VIAL SQ SCH ×5 (00:50→18:10)
[2018-10-02] MEDS: BALSAM PERU/CASTOR OIL 60 GM OINT...G. TP SCH ×3 (02:25→16:25)
[2018-10-02 03:57] LABS: BASOPHILS # (AUTO) 0.1 (0.0-0.1); BASOPHILS % 1.2 % (0.0-1.0); EOSINOPHILS # (AUTO) 0.4 (0.0-0.4); EOSINOPHILS % 6.1 % (0.0-6.0); HEMATOCRIT 28.6 % (38.2-49.6); HEMOGLOBIN 8.6 g/dL (14.0-18.0); LYMPHOCYTES # (AUTO) 1.3 (1.0-3.2); LYMPHOCYTES % 22.4 % (18.0-39.1); MEAN CORPUSCULAR HEMOGLOBIN 30.1 pg (28-32); MEAN CORPUSCULAR HGB CONC 30.1 g/dL (31-35); MONOCYTES # (AUTO) 0.7 (0.2-0.8); MONOCYTES % 12.4 % (4.4-11.3); NEUTROPHILS # (AUTO) 3.4 (2.1-6.9); NEUTROPHILS % 57.4 % (38.7-80.0); PLATELET COUNT 130 x10e3/uL (140-360); RED BLOOD COUNT 2.86 x10e6/uL (4.3-5.7); RED CELL DISTRIBUTION WIDTH 16.6 % (11.7-14.4)
[2018-10-02 04:14] LABS: ANION GAP 9.3 mmol/L (8-16); BLOOD UREA NITROGEN 21 mg/dL (7-26); BUN/CREATININE RATIO 24 (6-25); CALCIUM 8.8 mg/dL (8.4-10.2); CARBON DIOXIDE 32 mmol/L (22-29); CHLORIDE 107 mmol/L (98-107); CREATININE, SERUM 0.86 mg/dL (0.72-1.25); EST GLOMERULAR FILTRATION RATE > 60 ML/MIN (60-); GLUCOSE 127 mg/dL (74-118); POTASSIUM 4.3 mmol/L (3.5-5.1); SODIUM 144 mmol/L (136-145)
[2018-10-02] MEDS: MEROPENEM 1GM 100 ML IV SCH (05:54)
[2018-10-02] MEDS: PANTOPRAZOLE 40 MG 10ML VIAL IV SCH ×2 (08:36→16:25)
[2018-10-02] MEDS: FUROSEMIDE 40 MG TAB PO SCH ×2 (08:36→16:25)
[2018-10-02] MEDS: FERROUS SULFATE 325 MG TAB PO SCH ×2 (08:36→16:25)
[2018-10-02] MEDS: OYST-CAL-D 500MG TABLET PO SCH ×2 (08:36→16:25)
[2018-10-02] MEDS: ASCORBIC ACID 500 MG TAB PO SCH ×4 (08:37→16:25)
[2018-10-02] MEDS: CLOPIDOGREL BISULFATE 75 MG TAB PO SCH (09:00)
[2018-10-02] MEDS: POLYETHYLENE GLYCOL 3350 17 GM PACK PO SCH (09:00)
[2018-10-02] MEDS: METOPROLOL TARTRATE 25 MG TAB PO SCH ×2 (09:00→16:25)
[2018-10-02] MEDS ORDERED: ONDANSETRON HCL INJ 2MG/ML 2ML 2 MG/ML VIAL IV PRN (09:15)
[2018-10-02] MEDS ORDERED: HYDRALAZINE HCL 20 MG/ML VIAL IV PRN (09:15)
[2018-10-02] MEDS ORDERED: ACETAMINOPHEN 325 MG TAB PO PRN (09:15)
--- NOTE | 2018-10-02 09:30 | NUR ---
Pt received in bed. Pt states that he feels very sleepy and tired. Pt continues to have hematuria and Hgb dropped this morning. Attending here and notified and discharge has been put on hold. ABGs to be done now, Labs ordered for am, urology consulted for hematuria.
[2018-10-02 10:37] LABS: ABG HCO3 33 mmol/L (23-28); ABG PCO2 48 mmHg (41-51); ABG PH 7.44 (7.31-7.41); ABG PO2 109 mmHg (80-105)
[2018-10-02 14:13] LABS: BILIRUBIN,URINE NEGATIVE (NEGATIVE); CLARITY,URINE SL CLOUDY (CLEAR); COLOR,URINE YELLOW (YELLOW); KETONES,URINE NEGATIVE (NEGATIVE); LEUKOCYTE ESTERASE ,URINE NEGATIVE (NEGATIVE); NITRITE,URINE NEGATIVE (NEGATIVE); PROTEIN,URINE DIPSTICK NEGATIVE (NEGATIVE); URINE UROBILINOGEN 0.2 mg/dL (0.2 - 1)
--- NOTE | 2018-10-02 14:22 | Progress Note ---
DATE: 10/02/2018 Nephrology Progress Note SUBJECTIVE: The patient is doing well from a renal standpoint. There is no evidence of hematuria in which Urology was consulted. PHYSICAL EXAMINATION: VITAL SIGNS: Temperature is 97.3, pulse 73, respiratory rate 22, blood pressure 112/54, pulse ox 93% on 2 liters nasal cannula. GENERAL: Not in acute distress, alert and oriented x3, cooperative on examination. HEENT: Head is normocephalic and atraumatic. Eyes; pupils are equal, round, and reactive to light bilaterally. Extraocular movements are intact bilaterally. Throat, no evidence of erythema or exudates in the posterior pharynx. Has poor dentition. NECK: Supple. Good range of motion. PULMONARY: Clear to auscultation bilaterally. No wheezing, no rales, no rhonchi, and no crackles appreciated. CARDIOVASCULAR: Positive S1 and S2. No murmurs, rubs, or gallops appreciated. ABDOMEN: Soft, nondistended, and nontender to palpation. Bowel sounds present. MUSCULOSKELETAL: Strength is 5/5 throughout. No evidence of any muscle deficits on examination. No weakness appreciated. NEUROLOGICAL: Cranial nerves II through XII grossly intact. No evidence of any neurological deficits on exam. SKIN: Intact. Warm to touch. Good cap refill. PSYCHIATRIC: Normal affect and mood. EXTREMITIES: No edema. Good range of motion throughout. LABORATORY DATA: Lab findings show white count 5.9, hemoglobin 8.3, hematocrit 29, platelets of 130. Chemistry; sodium 144, potassium 4.3, chloride 107, bicarb 32, anion gap of 9.3, BUN 21, creatinine is 0.86, glucose 127, calcium 8.8. BNP 2433. MICROBIOLOGY: None. IMAGING STUDIES: None. IMPRESSION: 1. Acute kidney injury secondary to hypotension, now resolved. 2. Hypernatremia, resolved. Contraction alkalosis with metabolic alkalosis still present. Continue with free water. 3. Elb-SB-duxjxuxgm myocardial infarction status post left heart catheterization with stents. 4. Hematuria, resolving. 5. Lower extremity edema. PLAN: Creatinine is at baseline. Sodium improved to 144. Continue with free water flushes. Monitor sodium level closely. His bicarb is down trending likely due to contraction alkalosis. We will continue with Lasix as well and monitor his electrolytes closely. MD LORENA Yeager/BRYANT /[id number]
[2018-10-02 14:41] LABS: BACTERIA,URINE RARE /HPF; EPITHELIAL CELLS,URINE RARE /LPF; RBC,URINE >50 /HPF (0-5); WBC,URINE (MAN) 0-5 /HPF (0-5)
--- NOTE | 2018-10-02 15:02 | Progress Note ---
DATE: 10/02/2018 SUBJECTIVE: The patient complained of some fatigue. He does not have fever. He is not having chest pain. OBJECTIVE: VITAL SIGNS: The patient is afebrile. The vital signs are stable. HEENT: Shows no facial swelling or erythema. CARDIAC: Reveals regular rate and rhythm with normal S1, S2. There are no murmurs or rubs. Auscultation of lungs reveals clear breath sounds bilaterally. There is no wheezing. ABDOMEN: Soft, nontender. There is no rebound or guarding. EXTREMITIES: Show no leg edema or calf tenderness. There is no cyanosis or clubbing. SKIN: Shows no rashes. NEUROLOGICAL: Shows no focal abnormalities. IMPRESSION: 1. Zblkv-tv-kgrzmrw systolic congestive heart failure. 2. Pneumonia. 3. Myocardial infarction. PLAN: 1. Continue physical therapy. 2. Continue current cardiac regimen. 3. Complete antibiotics. 4. Plan for transfer to [place]. Bronson Jameson MD E[facility]/BRYANT /[id number]
[2018-10-02] MEDS ORDERED: CHLORASEPTIC SPRAY 177 ML BTL MM PRN (15:45)
--- NOTE | 2018-10-02 17:26 | NUR ---
Pt in bed. aox4 and able to verbalize needs. Denies any pain at this time. Pt continues on tube feeding per ngtube to left nare. Continues on O2 2L/NC and denies SOB at rest. Hematuria has cleared up and urine is dark yellow.
--- NOTE | 2018-10-02 18:37 | Consultation ---
DATE OF CONSULTATION: 10/02/2018 Urology Consultation CHIEF COMPLAINT AND REASON FOR CONSULTATION: Gross hematuria. HISTORY OF PRESENT ILLNESS: Mr. Gardiner is a 77-year-old male, admitted to the hospital with altered mental status, GI bleed and coagulopathy. Upon removal of Fine catheter, the patient was noted that he had gross hematuria. The patient denied dysuria. Denied fevers. No chills. Denied nausea or vomiting. PAST MEDICAL HISTORY: Notable for atrial fibrillation, hypertension, diabetes mellitus, hyperlipidemia, anemia, thrombocytopenia, osteoarthritis, medication induced coagulopathy, status post left total hip replacement, status post appendectomy, status post left retinal detachment with repair. MEDICATIONS: Please see MAR. ALLERGIES: NKDA. SOCIAL HISTORY: Denied smoking or drinking. FAMILY HISTORY: Denied urologic stones or malignancies. REVIEW OF SYSTEMS: Noncontributory other than problems mentioned above for 12 organ systems. PHYSICAL EXAMINATION: GENERAL: An elderly male in no acute distress. VITAL SIGNS: Currently, he is afebrile with stable vital signs. EYES: Sclerae anicteric. NECK: Supple. BACK: Without costovertebral angle tenderness bilaterally. ABDOMEN: Soft. It is nontender. It is nondistended. There is no palpable mass. No palpable hernias. No palpable adenopathy. : Normal male external genitalia. EXTREMITIES: No edema. NEURO: Moves all four extremities, bed-bound. PSYCH: Alert and appropriate. SKIN: Intact, normal color. PERTINENT LABORATORY DATA: CT scan revealing gallstones, left-sided IVC. Hemoglobin 8.6, hematocrit 28, platelet count 130,000, white cell count 5900. Sodium 144, potassium 4.3, chloride 107, bicarb 32, BUN 21, creatinine 0.86, glucose 127. Urinalysis; 21 to 50 reds, 6 to 10 whites. IMPRESSION: 1. Gross hematuria. 2. Coagulopathy. 3. Urinary tract infection, present on admission. 4. Thrombocytopenia. 5. Anemia. PLAN: The patient's coagulopathy needs to be reversed electively. He can perform cystoscopy as an outpatient. The hematuria appears to be lessening with decreasing coagulopathy into more than normal blood during stay. Thank you for allowing me to participate in the care of your patient. We will be happy to follow along with you. Fantasma Montero MD ES/MODL /[id number] cc: MD [place] Verde MD
--- NOTE | 2018-10-02 19:17 | NUR ---
Patient received asleep in bed. Arousable to tactile stimuli. No signs of pain, discomfort or respiratory distress noted. NG tube to left nares intact. Tube feeding (Glucerna 1.2) infusing at 50 cc /hr. Telemetry recording of Afib with a heart rate of 70. Fall precautions implemented. Call light within reach.
[2018-10-03 00:10] VITALS: BP 101/45
--- NOTE | 2018-10-03 00:17 | NUR ---
Report given to Amna (KAREEM) regarding patient's status.
--- NOTE | 2018-10-03 00:17 | NUR ---
RECEIVED PT LAYING FOWLERS IN BED, AAOX3, RR EVEN AND NON-LABORED, ON RA. NGT TO (L) NARE CONNECTED TO TUBE FEEDING AT 40ML/HR. NO S/SX OF DISTRESS NOTED. APPLIED ALTERNATING AIR PUMP TO MATTRESS. LEFT PT LAYING FOWLERS IN BED, BED IN LOW LOCKED POSITION, SIDE RAILS UPX3, CALL LIGHT AND PHONE WITHIN REACH.
[2018-10-03] MEDS: INSULIN LISPRO 100 UNIT/1 ML 3ML VIAL SQ SCH ×3 (00:43→12:00)
[2018-10-03] MEDS: BALSAM PERU/CASTOR OIL 60 GM OINT...G. TP SCH (03:28)
[2018-10-03 04:12] LABS: BASOPHILS # (AUTO) 0.1 (0.0-0.1); BASOPHILS % 1.1 % (0.0-1.0); EOSINOPHILS # (AUTO) 0.4 (0.0-0.4); EOSINOPHILS % 5.3 % (0.0-6.0); HEMATOCRIT 28.8 % (38.2-49.6); HEMOGLOBIN 8.6 g/dL (14.0-18.0); LYMPHOCYTES # (AUTO) 1.5 (1.0-3.2); LYMPHOCYTES % 20.1 % (18.0-39.1); MEAN CORPUSCULAR HEMOGLOBIN 29.7 pg (28-32); MEAN CORPUSCULAR HGB CONC 29.9 g/dL (31-35); MEAN CORPUSCULAR VOLUME 99.3 fL (81-99); MONOCYTES # (AUTO) 0.8 (0.2-0.8); MONOCYTES % 11.4 % (4.4-11.3); NEUTROPHILS # (AUTO) 4.5 (2.1-6.9); NEUTROPHILS % 61.7 % (38.7-80.0); PLATELET COUNT 143 x10e3/uL (140-360); RED CELL DISTRIBUTION WIDTH 16.6 % (11.7-14.4)
[2018-10-03 04:30] LABS: ANION GAP 8.8 mmol/L (8-16); BLOOD UREA NITROGEN 22 mg/dL (7-26); BUN/CREATININE RATIO 24 (6-25); CALCIUM 8.6 mg/dL (8.4-10.2); CARBON DIOXIDE 36 mmol/L (22-29); CHLORIDE 100 mmol/L (98-107); CREATININE, SERUM 0.91 mg/dL (0.72-1.25); EST GLOMERULAR FILTRATION RATE > 60 ML/MIN (60-); GLUCOSE 147 mg/dL (74-118); MAGNESIUM 1.4 MG/DL (1.3-2.1); POTASSIUM 3.8 mmol/L (3.5-5.1); SODIUM 141 mmol/L (136-145)
[2018-10-03 04:44] VITALS: BP 107/54
[2018-10-03 05:03] VITALS: BP 107/54
--- NOTE | 2018-10-03 07:14 | NUR ---
PATIENT IN BED RESTING WITH NO RESPIRATORY DISTRESS. NG TUBE TO RIGHT NOSTRIL WITH FEEDING INFUSING ORDERED. DTI TO RIGHT HEEL WITH PROTECTIVE BOOTS IN PLACE, TELEMETRY BOX [address] REPOSITIONED IN BED. BED IN LOWER POSITION, CALL LIGHT AT REACH, INSTRUCTED TO CALL FOR ASSISTANCE NEEDED.
[2018-10-03 07:15] VITALS: BP 96/47
[2018-10-03 07:18] VITALS: BP 114/50
[2018-10-03] MEDS: POLYETHYLENE GLYCOL 3350 17 GM PACK PO SCH (09:00)
[2018-10-03] MEDS: METOPROLOL TARTRATE 25 MG TAB PO SCH (09:00)
[2018-10-03] MEDS: FERROUS SULFATE 325 MG TAB PO SCH (09:13)
[2018-10-03] MEDS: PANTOPRAZOLE 40 MG 10ML VIAL IV SCH (09:13)
[2018-10-03] MEDS: FUROSEMIDE 40 MG TAB PO SCH (09:13)
[2018-10-03] MEDS: CLOPIDOGREL BISULFATE 75 MG TAB PO SCH (09:14)
[2018-10-03] MEDS: OYST-CAL-D 500MG TABLET PO SCH (09:14)
[2018-10-03] MEDS: ASCORBIC ACID 500 MG TAB PO SCH ×2 (09:14)
[2018-10-03] MEDS ORDERED: MEROPENEM 500MG/ NS 50ML 50 ML IV SCH (11:00)
[2018-10-03 11:30] VITALS: BP 101/55
--- NOTE | 2018-10-03 12:10 | NUR ---
PATIENT IS TO BE TRANSFERRED TO LTAC. REPORT CALLED AND GIVEN TO RECEIVING NURSE. FAMILY MEMBER AT BED SIDE. BED IN LOWER POSITION, CALL LIGHT AT REACH.
--- NOTE | 2018-10-03 14:20 | NUR ---
PATIENT TRANSFERRED TO [facility]. LEFT UNIT ON STRETCHER PER AMBULANCE. ALL PERSONAL ITEMS TAKEN WITH PATIENT. RIGHT UPPER ARM PICC LINE INTACT AND PATENT.
--- NOTE | 2018-10-03 15:21 | Progress Note ---
DATE: 10/03/2018 Nephrology Progress Note SUBJECTIVE: The patient is doing well today with no other complaints. He is complaining of sore throat and does have an NG tube. I am not sure how long he will have the NG tube. LAB FINDINGS: White count 7.3, hemoglobin 8.6, hematocrit 28, and platelets of 143. Chemistry; sodium 141, potassium 3.8, chloride 100, bicarb 36, anion gap of 8.8, BUN is 22, creatinine 0.91, and glucose is 147. PHYSICAL EXAMINATION: VITAL SIGNS: Temperature 98.8, pulse 79, respiratory rate is 20, blood pressure 101/55, and pulse ox 95% on nasal cannula. GENERAL: No acute distress, alert and oriented x3. Cooperative on examination. HEENT: Head is normocephalic and atraumatic. Eyes; pupils are equal, round, and reactive to light bilaterally. Extraocular movements are intact bilaterally. Throat, no evidence of erythema or exudates in the posterior pharynx. Has poor dentition. NECK: Supple. Good range of motion throughout. PULMONARY: Clear to auscultation bilaterally. No wheezing, no rales, no rhonchi, and no crackles appreciated. CARDIOVASCULAR: Positive S1 and S2. No murmurs, rubs, or gallops appreciated. ABDOMEN: Soft, nondistended, and nontender to palpation. Bowel sounds present. MUSCULOSKELETAL: Strength is 5/5 throughout. No evidence of any muscle deficits on examination. No weakness appreciated. NEUROLOGICAL: Cranial nerves II through XII grossly intact. No evidence of any neurological deficits on exam. SKIN: Intact. Warm to touch. Good cap refill. PSYCHIATRIC: Normal affect and mood. EXTREMITIES: No edema. Good range of motion throughout. IMPRESSION: 1. Acute kidney injury secondary to hypotension, now resolved. 2. Hypernatremia, resolved. 3. Contraction alkalosis and metabolic alkalosis with dehydration. 4. Tlh-HZ-ecbdfqgcu myocardial infarction, status post left heart catheterization with stent placed. 5. Hematuria, resolving. 6. Lower extremity edema. PLAN: Electrolytes are stable. His creatinine is stable. Continue with free water for hydration. Consider . Get a.m. labs. We will continue to follow. Jiries S Dahu, MD JSD/BRYANT /[id number]
--- NOTE | 2018-10-04 00:38 | Progress Note ---
DATE: 10/03/2018 Followup Note. SUBJECTIVE: The patient has been doing good. Plan is to discharge to [place]. Lab findings reviewed as per electronic medical record. IMPRESSION AND PALN: The patient with severe anemia requiring PRBC transfusion, doing very good, counts stable. He has been seen and evaluated by GI service and presently on Protonix. Plan to discharge him to the [facility]. I will continue followup care. MD JAIR Guzmán/BRYANT /[id number]
--- NOTE | 2018-10-04 08:39 | Discharge Summary ---
ADMISSION DIAGNOSES: Atrial fibrillation with rapid ventricular rate, septic shock present on admission, coagulopathy, acute blood loss anemia secondary to gastrointestinal bleed, hepatic encephalopathy and hyperammonemia secondary to cirrhosis, fluid overload, acute hypoxic respiratory failure requiring intubation, thrombocytopenia, hypocalcemia, AMS, hypotension. DISCHARGE DIAGNOSES: Atrial fibrillation with rapid ventricular rate, septic shock present on admission, coagulopathy, acute blood loss anemia secondary to gastrointestinal bleed, hepatic encephalopathy and hyperammonemia secondary to cirrhosis, fluid overload, acute hypoxic respiratory failure requiring intubation, thrombocytopenia, hypocalcemia, AMS, hypotension, non-ST elevation [place], dysphagia with aspiration, LAD stent. MEDICAL HISTORY: Atrial fibrillation, hypertension, type 2 diabetes, hyperlipidemia, anemia, thrombocytopenia, OA. SURGICAL HISTORY: Left total hip replacement, left eye retinal detachment repair, appendectomy. FAMILY HISTORY: The patient's mom and dad have cancer. SOCIAL HISTORY: Noncontributory. HOSPITAL COURSE: A 77-year-old male admitted for AMS that began yesterday per his family. He was discharged from the hospital last week for GI bleed and fluid overload and was feeling much better per his family. The GI bleed was stable and his hemoglobin was 8 for many days prior to discharge home. AMS had a quick onset, but the patient has no other complaints. On admission, the patient was found to be in atrial fibrillation RVR. He was started on amiodarone drip per Cardiology. His Coumadin was held as his INR was 4.13 on admission. He was given 10 mg of vitamin K and two FFPs and two PRBCs. His hemoglobin was 6.5 on admission and his stool for blood was positive. GI was consulted. Hematology/Oncology was also consulted. The patient's ammonia was found to be 372, so the patient was started on lactulose. GI was then consulted. The patient required intubation due to hypoxic respiratory failure and was placed in ICU. He was also started on Levophed drip due to septic shock. Chest x-ray on admission showed cardiomegaly and pulmonary vascular prominence suggestive of pulmonary artery hypertension, retrocardiac airspace disease suggests atelectasis or infiltrate. Small effusions suspected. CT of the brain showed no acute abnormality. UA was negative. Urine culture negative. Blood culture is negative. Ammonia trended down to 102 after 2 days. At time of discharge, the patient's hemoglobin was 8.6. The day after admission, the patient's troponin was found to be 75. He was taken to cath lab manager and had an LAD stent placed. Clostridium difficile was negative. On the same day 09/23, the patient had an EGD with no apparent bleed noted. Hemoglobin remained stable once again. He also had an MBS after being extubated, which showed laryngeal penetration and a small amount of aspiration, so an NG tube was placed. The patient was moved out of ICU and weaned off all drips. He was then noted to have hematuria, so Urology was consulted. The patient will follow up outpatient for cystoscopy per Urology recommendation. The patient's labs are now stable. His vitals are stable as well. He is ready to discharge to [place] for more physical therapy and speech therapy workup. The patient understands discharge instructions and agrees to plan. Dictated by Jennifer Hazel NP MD LETICIA Verde/BRYANT /[id number]
== END 2018-10-03 14:15 | DRG 853 ==
LOC: ER 20:58 → ERHOLD 23:26 → ICU 09-22 02:03 → MED/SURG3 09-30 11:12
PROVIDERS: ADMIT Internal Medicine; ATTEND Internal Medicine
PROC: 30243K1 Transfusion of Nonautologous Frozen Plasma into Central Vein, Percutaneous Approach (ICD-10-PCS; 2018-09-22)
PROC: 30243N1 Transfusion of Nonautologous Red Blood Cells into Central Vein, Percutaneous Approach (ICD-10-PCS; 2018-09-22)
PROC: 027036Z Dilation of Coronary Artery, One Artery with Three Drug-eluting Intraluminal Devices, Percutaneous Approach (ICD-10-PCS; 2018-09-23)
PROC: 4A023N7 Measurement of Cardiac Sampling and Pressure, Left Heart, Percutaneous Approach (ICD-10-PCS; 2018-09-23)
PROC: B2111ZZ Fluoroscopy of Multiple Coronary Arteries using Low Osmolar Contrast (ICD-10-PCS; 2018-09-23)
PROC: B2151ZZ Fluoroscopy of Left Heart using Low Osmolar Contrast (ICD-10-PCS; 2018-09-23)
PROC: 02HV33Z Insertion of Infusion Device into Superior Vena Cava, Percutaneous Approach (ICD-10-PCS; principal; 2018-09-23 12:05)
DX: A41.9 Sepsis, unspecified organism (principal); J96.20 Acute and chronic respiratory failure, unspecified whether with hypoxia or hypercapnia; I50.23 Acute on chronic systolic (congestive) heart failure; J18.9 Pneumonia, unspecified organism; I21.4 Non-ST elevation (NSTEMI) myocardial infarction; R57.0 Cardiogenic shock; R65.21 Severe sepsis with septic shock; D68.9 Coagulation defect, unspecified; D62 Acute posthemorrhagic anemia; N39.0 Urinary tract infection, site not specified; I48.91 Unspecified atrial fibrillation; D50.0 Iron deficiency anemia secondary to blood loss (chronic); D69.6 Thrombocytopenia, unspecified; E11.9 Type 2 diabetes mellitus without complications; R31.0 Gross hematuria
CPT/HCPCS: 31500; 36415; 36555; 36569; 36600; 43239; 51700; 70450; 71045; 74150; 74230; 80048; 80053; 80076; 81001; 82140; 82270; 82550; 82553; 82805; 82948; 83605; 83735; 83880; 84100; 84443; 84484; 85014; 85018; 85025; 85610; 85730; 86850; 86900; 86920; 87040; 87086; 87493; 92928; 93005; 93306; 93458; 94002; 94003; 94660; 96372; 97139; 99285; C1725; C1769; C1874; J0583; J0692; J1940; J2001; J2060; J2250; J3370; J3430; J7030; J7050; J7060; P9016; P9017; Q9967